=== PATIENT | female | born 1935 | race African-American/Black ===

== ENCOUNTER 2018-11-23 18:23 | Observation (INO) | payer MEDICARE, MEDICAID ==
[2018-11-23] VITALS (9 sets, daily range): BP systolic 113–197; BP diastolic 56–106
[~2018-11-23] VITALS: Ht 167.6 cm; Wt 77.3 kg
[~2018-11-23 18:23] MED LIST: ANUSOL-HC 2.5%30 GM TOPICAL; BAYER CHEWABLE81 MG PO; CATAPRES TTS-10.1 MG TRANSDERM; CATAPRES TTS-20.2 MG TD; COREG 3.1253.125 MG PO; COZAAR100 MG PO; FLORASTOR250 MG PO; HYZAAR 100-25 T1 TAB PO; LEVAQUIN500 MG PO; LISINOPRIL10 MG PO; LOPERAMIDE HCL2 MG PO; MEGACE40 MG PO; NORVASC10 MG PO; PROTONIX40 MG PO; ZOCOR5 MG PO
[2018-11-23] MEDS ORDERED: ELAVIL75 MG PO (18:32)
[2018-11-23 18:54] LABS: BASOPHILS 0.1 % (0-2); EOSINOPHILS 1.5 % (0-7); HEMATOCRIT 44.8 % (36.0-48.0); HEMOGLOBIN 14.5 g/dL (12-16); IMMATURE GRANULOCYTES 0.5 % (0-5); LYMPHOCYTES 26.5 % (15-50); MCH 27.7 pg (26.0-34.0); MCHC 32.4 g/dL (31.0-37.0); MCV 85.7 fL (80.0-100.0); MEAN PLATELET VOLUME 10.2 fL (7.4-10.4); MONOCYTES 7.9 % (2-11); NEUTROPHILS 63.5 % (40-80); PLATELET COUNT 224 10x3/uL (130-400); RBC 5.23 10x6/uL (4.00-5.40); RDW 16.2 % (11.5-14.5); WBC 14.1 10x3/uL (4.8-10.8)
[2018-11-23 19:06] LABS: ALKALINE PHOSPHATASE 96 U/L (46-116); ALT (SGPT) 10 U/L (10-68); BILIRUBIN - TOTAL 0.61 mg/dL (0.2-1.3); CALC OSMOLALITY 286 mosm/kg (275-300); CALCIUM 8.3 mg/dL (8.5-10.1); CARBON DIOXIDE 26.4 mmol/L (21.0-32.0); CHLORIDE - SERUM 105 mmol/L (98-107); CREATININE - SERUM 1.4 mg/dL (0.6-1.3); GLUCOSE 157 mg/dL (74-106); POTASSIUM - SERUM 3.6 mmol/L (3.5-5.1); SODIUM 142 mmol/L (136-145); UREA NITROGEN 15 mg/dL (7-18); eGFR NON AFRICAN AMERICAN 38 mL/min (90-120)
[2018-11-23 19:18] LABS: CKMB 0.4 U/L (0.0-3.6); CREATINE KINASE 67 UL (21-215)
[2018-11-23 20:31] LABS: APPEARANCE CLEAR (CLEAR); BILIRUBIN NEGATIVE (NEGATIVE); COLOR YELLOW (YELLOW); GLUCOSE NEGATIVE (NEGATIVE); KETONE NEGATIVE (NEGATIVE); NITRITE NEGATIVE (NEGATIVE); PROTEIN NEGATIVE (NEGATIVE); SPECIFIC GRAVITY 1.015 (1.005-1.020); UROBILINOGEN NORMAL (NORMAL)
--- NOTE | 2018-11-23 23:42 | NUR ---
RN ASSISTED PT ONTO BEDPAN. PT TOLERATED WELL. PT FAMILY AT BEDSIDE.
--- NOTE | 2018-11-24 00:15 | NUR ---
PT SLEEPING ON BED, PT FAMILY AT BEDSIDE.
--- NOTE | 2018-11-24 00:19 | NUR ---
I have reviewed this patient and I concur with the Shift Assessment completed by the Licensed Practical Nurse today this shift.
--- NOTE | 2018-11-24 00:50 | NUR ---
RECEIVED TO FLOOR FROM ER, ORIENTED TO ROOM, CALL LIGHT IN REACH, BED LOWEST POSITION, WILL CONTINUE POC
[2018-11-24 01:12] VITALS: BP 139/64; Ht 167.6 cm; Wt 77.3 kg
--- NOTE | 2018-11-24 01:21 | NUR ---
ADMISSION ASSESSMENT COMPLETE. PT ORIENTED TO ROOM AND CALL LIGHT. BED ALARM, YELLOW GOWN, YELLOW BRACELET, AND NON SKID SOCKS IN PLACE PER FALL PROTOCAL. SIDE RAILS UP X2 FOR SAFETY. O2 IN USE VIA NC AT 2L.
--- NOTE | 2018-11-24 08:12 | NUR ---
PT DISORIENTED TO TIME. SPEECH GARBLED. IV TO RIGHT AC, PATENT, DRESSING CLEAN DRY AND INTACT. PT REPORTING NO PAIN AT THIS TIME. BED LOW, CALL LIGHT IN REACH. NO OTHER NEEDS AT THIS TIME.
[2018-11-24 08:45] VITALS: BP 116/68
[2018-11-24] MEDS ORDERED: EDARBI40 MG PO (09:46)
[2018-11-24 09:49] LABS: BASOPHILS 0.1 % (0-2); EOSINOPHILS 1.1 % (0-7); HEMATOCRIT 43.7 % (36.0-48.0); HEMOGLOBIN 14.2 g/dL (12-16); IMMATURE GRANULOCYTES 0.4 % (0-5); MCH 27.7 pg (26.0-34.0); MCHC 32.5 g/dL (31.0-37.0); MCV 85.4 fL (80.0-100.0); MONOCYTES 7.1 % (2-11); NEUTROPHILS 79.3 % (40-80); PLATELET COUNT 223 10x3/uL (130-400); RBC 5.12 10x6/uL (4.00-5.40); RDW 16.2 % (11.5-14.5); WBC 10.7 10x3/uL (4.8-10.8)
[2018-11-24 10:04] LABS: ALBUMIN 2.7 g/dL (3.4-5.0); ANION GAP 9.4 mmol/L (8-16); BILIRUBIN - TOTAL 0.59 mg/dL (0.2-1.3); CALCIUM 8.4 mg/dL (8.5-10.1); CARBON DIOXIDE 29.5 mmol/L (21.0-32.0); CREATININE - SERUM 0.9 mg/dL (0.6-1.3); POTASSIUM - SERUM 3.9 mmol/L (3.5-5.1); PROTEIN - SERUM 6.5 g/dL (6.4-8.2)
[2018-11-24 12:00] VITALS: BP 117/70
[2018-11-24 16:30] VITALS: BP 125/62
[2018-11-24 20:31] VITALS: BP 118/54
--- NOTE | 2018-11-25 02:56 | NUR ---
I have reviewed this patient and I concur with the Shift Assessment completed by the Licensed Practical Nurse today this shift.
[2018-11-25 04:59] VITALS: BP 119/80
[2018-11-25 05:24] LABS: HEMATOCRIT 41.6 % (36.0-48.0); HEMOGLOBIN 13.2 g/dL (12-16); LYMPHOCYTES 19.2 % (15-50); MCH 27.6 pg (26.0-34.0); MCHC 31.7 g/dL (31.0-37.0); MCV 86.8 fL (80.0-100.0); MEAN PLATELET VOLUME 10.3 fL (7.4-10.4); NEUTROPHILS 67.5 % (40-80); PLATELET COUNT 208 10x3/uL (130-400); RBC 4.79 10x6/uL (4.00-5.40); RDW 16.7 % (11.5-14.5); WBC 8.9 10x3/uL (4.8-10.8)
[2018-11-25 05:33] LABS: ALBUMIN 2.5 g/dL (3.4-5.0); ANION GAP 8.2 mmol/L (8-16); BILIRUBIN - TOTAL 0.58 mg/dL (0.2-1.3); CALCIUM 8.3 mg/dL (8.5-10.1); CARBON DIOXIDE 30.5 mmol/L (21.0-32.0); CREATININE - SERUM 1.1 mg/dL (0.6-1.3); POTASSIUM - SERUM 3.7 mmol/L (3.5-5.1); PROTEIN - SERUM 6.2 g/dL (6.4-8.2)
[2018-11-25 09:13] VITALS: BP 135/70
--- NOTE | 2018-11-25 10:52 | NUR ---
MORNING ASSESSMENT COMPLETE. SEE ASSESSMENT FLOWSHEET FOR FURTHER DETIALS. PT LYING IN BED AAO X4 TO PERSON, PLACE, TIME, AND SITUATION. DENIES NEEDS AT THIS TIME. CL IN REACH. SIDE RAILS UP X3 FOR PT SAEFTY. BED IN LOWEST POSITION. DAUGHTER AT BEDSIDE.
--- NOTE | 2018-11-25 11:12 | MORECARE ---
CASE MANAGEMENT DISCHARGE SUMMARY PATIENT: TELLY SORENSEN UNIT: [id number] ADM DATE: 11/24/18 AGE: 83 : 37 SEX: F ROOM/BED: D.2230 AUTHOR: PONCHO PADGETT PHYSICIAN: REFERRING PHYSICIAN: MARCIE GALVEZ DO DATE OF SERVICE: 11/25/18 Discharge Plan Patient Name: TELLY SORENSEN Facility: [facility]:[place] : 1935 Planned Disposition: Home with Home Health Anticipated Discharge Date: 11/25/18 Discharge Date: Expected LOS: 1 Initial Reviewer: [email or web address] Initial Review Date: 11/24/2018 Generated: 11/25/18 12:12 pm Patient Name: TELLY SORENSEN Page [phone] at 1112 All edits/amendments must be made on the electronic document DICTATION DATE: 11/25/18 1111 COLOR PRINT INSPECTOR: CHANEL 11/25/18 1111 RPT#: [id number] DC DATE: STATUS: ADM IN [facility] [address] [place] [address] END OF REPORT
--- NOTE | 2018-11-25 11:12 | NUR ---
D/C PT HOME VIA W/C. WENT OVER ALL DISCHARGED INSTRUCTIONS AND PT/DAUGHTER STATES UNDERSTANDING. DENIES FURTHER NEEDS AT THIS TIME. LEFT WITH ALL PERSONAL BELONGINGS.
--- NOTE | 2018-11-25 11:19 | MORECARE ---
CASE MANAGEMENT DISCHARGE SUMMARY PATIENT: TELLY SORENSEN UNIT: [id number] ADM DATE: 11/24/18 AGE: 83 : 37 SEX: F ROOM/BED: D.2230 AUTHOR: PONCHO PADGETT PHYSICIAN: REFERRING PHYSICIAN: MARCIE GALVEZ DO DATE OF SERVICE: 11/25/18 Discharge Plan Patient Name: TELLY SORENSEN Facility: [facility]:[place] : 1935 Planned Disposition: Home with Home Health Anticipated Discharge Date: 11/25/18 Discharge Date: Expected LOS: 1 Initial Reviewer: [email or web address] Initial Review Date: 11/24/2018 Generated: 11/25/18 12:19 pm Comments DCP- Discharge Planning Updated by [email or web address]: Renetta Casanova on 11/25/18 10:[address] PATIENT FOR DISCHARGE TO HOME TODAY. CM SPOKE WITH THE PATIENT WHO GAVE PERMISSION FOR CM TO SPEAK WITH HER DAUGHTER, MS NATALIA VIDAL. CM ADVISED OF DISCHARGE AND ORDER FOR HOME HEALTH, THE DAUGHTER STATES THEY HAVE HAD HOME HEALTH PREVIOUSLY AND WANT [facility]. CM PROVIDED PATIENT CHOICE LIST FOR HOME HEALTH AND PATIENT CHOICE FORM. CM EXPLAINED DISCHARGE IMM. PATIENT STATES SHE WANTS TO GO HOME AND IS READY TO GO. THE DAUGHTER STATES SHE UNDERSTANDS DISCHARGE IMM. PATIENT ASK DTR TO SIGN CHOICE FORM AND DISCHARGE IMM. TC TO [facility] AND SPOKE Ila/ JANIS. CM FAXED CLINICAL, MD ORDERS AND DISCHARGE ORDERS. [facility] WILL ADVISE THE DTR OF VISIT DATE. Coverage Notice Reviewer: [email or web address] - Renetta Casanova Notice Issued Date-Time: 11/25/2018 10:27 Notice Type: IM Discharge Notice Notice Delivered To: Family Member Relationship to Patient: Daughter Speech Language Pathologist Assistant Name: NATALIA VIDAL Delivery Method: HAND - Hand Delivered Lucy Days: Prior Verbal Notification: Recipient Understood Notice: Yes Recipient Signature: Yes Med Rec Note Co-signed by Attending: Coverage Notice Comment: D/C IMM SERVED TO THE PATIENT AND DTR AFTER EXPLANING D/C IMM. Last DP export: 11/25/18 10:12 a Patient Name: TELLY SORENSEN Page [id number] at 1119 All edits/amendments must be made on the electronic document DICTATION DATE: 11/25/181118 TALENT ACQUISITION COORDINATOR: CHANEL 11/25/181118 RPT#: [id number] DC DATE: STATUS: ADM IN [facility] [address] [place] [address] END OF REPORT
--- NOTE | 2018-11-26 15:15 | MORECARE ---
CASE MANAGEMENT DISCHARGE SUMMARY PATIENT: TELLY SORENSEN UNIT: [id number] ADM DATE: 11/24/18 AGE: 83 : 37 SEX: F ROOM/BED: D.2230 AUTHOR: PONCHO PADGETT PHYSICIAN: REFERRING PHYSICIAN: MARCIE GALVEZ DO DATE OF SERVICE: 11/26/18 Discharge Plan Patient Name: TELLY SORENSEN Facility: [facility]:[place] : 1935 Planned Disposition: Home with Home Health Anticipated Discharge Date: 11/25/18 Discharge Date: 11/25/2018 Expected LOS: 1 Initial Reviewer: [email or web address] Initial Review Date: 11/24/2018 Generated: 11/26/18 4:15 pm Comments DCP- Discharge Planning Updated by [email or web address]: Renetta Casanova on 11/25/18 10:[address] PATIENT FOR DISCHARGE TO HOME TODAY. CM SPOKE WITH THE PATIENT WHO GAVE PERMISSION FOR CM TO SPEAK WITH HER DAUGHTER, MS NATALIA VIDAL. CM ADVISED OF DISCHARGE AND ORDER FOR HOME HEALTH, THE DAUGHTER STATES THEY HAVE HAD HOME HEALTH PREVIOUSLY AND WANT [facility]. CM PROVIDED PATIENT CHOICE LIST FOR HOME HEALTH AND PATIENT CHOICE FORM. CM EXPLAINED DISCHARGE IMM. PATIENT STATES SHE WANTS TO GO HOME AND IS READY TO GO. THE DAUGHTER STATES SHE UNDERSTANDS DISCHARGE IMM. PATIENT ASK DTR TO SIGN CHOICE FORM AND DISCHARGE IMM. TC TO [employer] AND SPOKE W/ JANIS. CM FAXED CLINICAL, MD ORDERS AND DISCHARGE ORDERS. [facility] WILL ADVISE THE DTR OF VISIT DATE. Coverage Notice Reviewer: [id number] - Renetta Casanova Notice Issued Date-Time: 11/25/2018 10:27 Notice Type: IM Discharge Notice Notice Delivered To: Family Member Relationship to Patient: Daughter Roof Shingler Name: NATALIA VIDAL Delivery Method: HAND - Hand Delivered Lucy Days: Prior Verbal Notification: Recipient Understood Notice: Yes Recipient Signature: Yes Med Rec Note Co-signed by Attending: Coverage Notice Comment: D/C IMM SERVED TO THE PATIENT AND DTR AFTER EXPLANING D/C IMM. Last DP export: 11/25/18 10:19 a Patient Name: TELLY SORENSEN Page [phone] at 1515 All edits/amendments must be made on the electronic document DICTATION DATE: 11/26/181514 CHEESE CUTTER: CHANEL 11/26/18 151 RPT#: [id number] DC DATE:11/25/18 STATUS: DIS IN [facility] [address] [place] [address] END OF REPORT
== END 2018-11-25 11:38 | disposition home health service (06) ==
LOC: D.ER 18:23 → OBSVTIME 11-24 00:05 → D.MS 11-24 00:05 → D.M3 11-24 04:27 → D.MS 11-24 04:29
PROVIDERS: Family Medicine; ADMIT Family Medicine; ATTEND Family Medicine
DX: I62.9 Nontraumatic intracranial hemorrhage, unspecified (principal); Z86.73 Personal history of transient ischemic attack (TIA), and cerebral infarction without residual deficits; M19.90 Unspecified osteoarthritis, unspecified site; I11.0 Hypertensive heart disease with heart failure; I50.9 Heart failure, unspecified

== ENCOUNTER → 2019-03-12 13:04 | Outpatient (CLI) | payer MEDICARE, MEDICAID ==
[2018-11-24 01:12] VITALS: BMI 27.5
--- NOTE | ~2019-03-12 | EC ---
PATIENT:TELLY SORENSEN DATE OF SERVICE: 03/12/19 SEX: F MEDICAL RECORD: [id number] DATE OF : [birth year] LOCATION:D[facility] AGE OF PATIENT: 83 ADMISSION DATE: 03/12/19 REFERRING PHYSICIAN: INTERPRETING PHYSICIAN: SHANIQUA ORTIZ MD ECHOCARDIOGRAM REPORT ECHO CHARGES 4 ECHO COMPLETE Date: 03/12/19 CLINICAL DIAGNOSIS: CARDIOMYOPATHY/CHF H/O HTN ECHOCARDIOGRAPHIC MEASUREMENTS (adult normal given) AC root (d.<3.7cm) 2.8 cm LV Septum d (<1.2 cm> 1.2 cm Valve Excursion 1.3 cm LV Septum (systole) 1.6 cm Left Atria (s.<4.0cm> 3.4 cm LVPW d(<1.2cm) 1.2 cm RV (d.<2.3cm) 2.1 cm LVPW (sytole) 1.5 cm LV diastole(<5.6CM) 5.6 cm MV E-F(>70mm/sec) cm LV systole 4.0 cm LVOT Diameter 1.5 cm MV exc.(>10mm) cm Est.ejection fraction (50-75%) % DOPPLER: LVIT cm/sec A 45.0 cm/sec E 120 cm/sec LA cm/sec RVSP 41.0 mmHg LVOT 127 cm/sec AOP1/2T m/s Asc. Ao 192 cm/sec RVOT 72.0 cm/sec RA cm/sec PA 120 cm/sec AV Gradient Peak 15.0 mmHg AV Mean 5.3 mmHg AV Area 1.1 cm MV Gradient Peak 5.9 mmHg MV Mean 2.1 mmHg MV Area cm COMMENTS: OP - HC Supervisory Training Specialist: Bladimir CHANDRAOE Telegraph Office Manager: 1 Dr. Ortiz TAPE# PACS Pericardial Effusion N DATE OF SERVICE: 03/12/2019 FINDINGS: 1. Left ventricular chamber size is mildly dilated. Left ventricular systolic function is markedly reduced. Overall ejection fraction is 20%. 2. Left atrium is within normal limits at 3.4 cm. Right atrium and right ventricular chamber sizes are upper limits of normal. 3. Valvular structures have normal structure and motion. 4. Doppler interrogation reveals mild tricuspid regurgitation. No other valvular insufficiency or stenosis. Pulmonary systolic pressure is estimated at ECHOCARDIOGRAM REPORT [id number] TELLY SORENSEN 41 mmHg. 5. No evidence of pericardial effusion or left ventricular thrombus. TRANSINT:[id number] Voice Confirmation ID: [id number] DOCUMENT ID: [id number] SHANIQUA ORTIZ MD CC: [id number] DICTATION DATE: 03/12/19 145 ANIMATION CAMERA OPERATOR: 03/12/19 1542 [facility] [address] [place] [id number]
[~2019-03-12 13:04] MED LIST changes: +EDARBI40 MG PO; +ELAVIL75 MG PO
== END | disposition home or self-care (01) ==
LOC: D.HCCARDIO 13:04
PROVIDERS: ATTEND Internal Medicine Interventional Cardiology
DX: I42.9 Cardiomyopathy, unspecified (principal); I50.9 Heart failure, unspecified; I11.0 Hypertensive heart disease with heart failure

== ENCOUNTER 2019-07-16 11:45 | Observation (INO) | payer MEDICARE, MEDICAID ==
[~2019-07-16] VITALS: Ht 167.6 cm; Wt 85.0 kg
[2019-07-16 12:04] LABS: BASOPHILS 0.1 % (0-2); EOSINOPHILS 2.8 % (0-7); HEMATOCRIT 43.5 % (36.0-48.0); HEMOGLOBIN 13.8 g/dL (12-16); IMMATURE GRANULOCYTES 0.3 % (0-5); LYMPHOCYTES 23.4 % (15-50); MCH 27.9 pg (26.0-34.0); MCHC 31.7 g/dL (31.0-37.0); MCV 87.9 fL (80.0-100.0); MEAN PLATELET VOLUME 10.1 fL (7.4-10.4); MONOCYTES 6.5 % (2-11); NEUTROPHILS 66.9 % (40-80); PLATELET COUNT 236 10x3/uL (130-400); RBC 4.95 10x6/uL (4.00-5.40); RDW 15.5 % (11.5-14.5); WBC 9.4 10x3/uL (4.8-10.8)
[2019-07-16 12:19] LABS: APTT 24.9 SECONDS (22.8-39.4); INR 1.03 (0.85-1.17)
[2019-07-16 12:28] LABS: CALC OSMOLALITY 275 mosm/kg (275-300); CALCIUM 8.5 mg/dL (8.5-10.1); CARBON DIOXIDE 28.2 mmol/L (21.0-32.0); CHLORIDE - SERUM 103 mmol/L (98-107); CREATININE - SERUM 1.7 mg/dL (0.6-1.3); GLUCOSE 111 mg/dL (74-106); POTASSIUM - SERUM 4.4 mmol/L (3.5-5.1); SODIUM 138 mmol/L (136-145); UREA NITROGEN 9 mg/dL (7-18); eGFR NON AFRICAN AMERICAN 31 mL/min (90-120)
[2019-07-16 12:34] VITALS: BP 101/36
[2019-07-16] MEDS ORDERED: NORVASC10 MG (12:36)
[2019-07-16] MEDS ORDERED: SMZ-TMP DS 800-1 TAB PO (12:36)
[2019-07-16] MEDS ORDERED: COREG12.5 MG PO (12:36)
[2019-07-16] MEDS ORDERED: ZOCOR10 MG PO (12:36)
[2019-07-16 12:43] LABS: ALBUMIN 2.9 g/dL (3.4-5.0); ALKALINE PHOSPHATASE 110 U/L (46-116); ALT (SGPT) 14 U/L (10-68); BILIRUBIN - TOTAL 0.41 mg/dL (0.2-1.3); CKMB 0.5 U/L (0.0-3.6); CREATINE KINASE 40 UL (21-215); MAGNESIUM - SERUM 2.4 mg/dL (1.8-2.4); PROTEIN - SERUM 7.2 g/dL (6.4-8.2); TROPONIN-I < 0.017 ng/mL (0.000-0.060)
[2019-07-16 13:45] VITALS: BP 149/59
[2019-07-16 14:58] VITALS: BP 146/58
--- NOTE | 2019-07-16 15:03 | NUR ---
REPORT TO [facility]
--- NOTE | 2019-07-16 15:15 | NUR ---
NS 1000ML INITIATED @ 75 ML/HR JUST PRIOR TO TX TO ROOM
--- NOTE | 2019-07-16 15:17 | NUR ---
TRANSFER FROM ER BY STRETCHER. OREINTED TO ROOM. CALL LIGHT IN REACH. WILL CONT. PLAN OF CARE.
--- NOTE | 2019-07-16 15:20 | NUR ---
TRANSPORTED TO ROOM #2120, CONDITION STABLE
--- NOTE | 2019-07-16 15:31 | NUR ---
RECEIVED PT FROM ER. PT IS AAO AND BEDFAST. FAMILY AT BEDSIDE. PT IS LYING SEMI FOWLERS. CALL LIGHT W/I REACH. RR EVEN AND UNLABORED ON RA. NS INFUSING @75ML/HR VIA L.AC PIV. NO S/S OF DISTRESS NOTED. QUICKSTART, MED REQ, AND HISTORY COMPLETE. PT DENIES ANY NEEDS AT THIS TIME. WILL CTM.
[2019-07-16 15:56] VITALS: BP 135/54; Ht 167.6 cm; Wt 85.0 kg
[2019-07-16 16:10] VITALS: BP 135/54
--- NOTE | 2019-07-16 19:27 | NUR ---
RECEIVED BEDSIDE REPORT. PATIENT IS ALERT AND ORIENTED, RESTING COMFORTABLY IN BED. RESPIRATIONS ARE EVEN AND UNLABORED. NO S/S OF DISTRESS. NO C/O PAIN. CALL LIGHT WITHIN REACH. NEEDS MET. WILL CPOC.
[2019-07-16 20:00] VITALS: BP 129/52
--- NOTE | 2019-07-16 21:05 | NUR ---
EXPLAINED TO PATIENT THAT I NEEDED A URINE SAMPLE. PATIENT SAID SHE NEED TO GO. PATIENT STATED, SHE COULD NOT WALK. I PLACED PATIENT ON A BEDPAN. DAUGHTER CAME TO NURSES STATION UPSET THAT I PUT THE PATIENT ON A BEDPAN. DAUGHTER STATED THAT THE PATIENT COULD WALK. DAUGHTER THREATENED THIS NURSE THAT IF SHE EVER FOUND HER MOTHER WET I WOULD REGRET IT AND SHE WOULD PROMISE ME THAT. SMELTER CHARGER NOTIFIED.
[2019-07-16 22:50] LABS: UDS - AMPHET NEGATIVE QUAL (NEGATIVE); UDS - BARB NEGATIVE QUAL (NEGATIVE); UDS - BENZO NEGATIVE QUAL (NEGATIVE); UDS - COCAINE NEGATIVE QUAL (NEGATIVE); UDS - OPIATE NEGATIVE QUAL (NEGATIVE); UDS - PCP NEGATIVE QUAL (NEGATIVE); UDS - THC POSITIVE QUAL (NEGATIVE)
--- NOTE | 2019-07-16 22:57 | NUR ---
HOURLY ROUNDING COMPLETE. PATIENT RESTING COMFORTABLY IN BED. RESPIRATIONS ARE EVEN AND UNLABORED. NO S/S OF DISTRESS. NO C/O PAIN. CALL LIGHT WITHIN REACH. PATIENT DENIES NEEDS. WILL CPOC
--- NOTE | 2019-07-16 23:02 | NUR ---
EQUIPMENT CLEANER AND TESTER NOTIFIED AGAIN OF DAUGHTER REQUEST TO SPEAK WITH HER.
[2019-07-17] VITALS (7 sets, daily range): BP systolic 136–161; BP diastolic 49–84
--- NOTE | 2019-07-17 02:26 | NUR ---
PATIENT APPEARS TO BE SLEEPING. RESPIRATIONS ARE EVEN AND UNLABORED. NO S/S OF DISTRESS. NO C/O PAIN. CALL LIGHT WITHIN REACH. WILL PCOC.
[2019-07-17 05:51] LABS: BASOPHILS 0.1 % (0-2); EOSINOPHILS 1.8 % (0-7); HEMATOCRIT 41.4 % (36.0-48.0); HEMOGLOBIN 13.1 g/dL (12-16); IMMATURE GRANULOCYTES 0.2 % (0-5); MCH 27.6 pg (26.0-34.0); MCHC 31.6 g/dL (31.0-37.0); MCV 87.3 fL (80.0-100.0); MEAN PLATELET VOLUME 9.9 fL (7.4-10.4); MONOCYTES 7.7 % (2-11); NEUTROPHILS 74.2 % (40-80); PLATELET COUNT 238 10x3/uL (130-400); RBC 4.74 10x6/uL (4.00-5.40); RDW 15.4 % (11.5-14.5); WBC 9.4 10x3/uL (4.8-10.8)
[2019-07-17 06:33] LABS: ALBUMIN 2.7 g/dL (3.4-5.0); ANION GAP 11.5 mmol/L (8-16); BILIRUBIN - TOTAL 0.39 mg/dL (0.2-1.3); CALCIUM 7.8 mg/dL (8.5-10.1); CARBON DIOXIDE 24.8 mmol/L (21.0-32.0); CREATININE - SERUM 1.4 mg/dL (0.6-1.3); MAGNESIUM - SERUM 2.3 mg/dL (1.8-2.4); POTASSIUM - SERUM 4.3 mmol/L (3.5-5.1); PROTEIN - SERUM 6.3 g/dL (6.4-8.2)
--- NOTE | 2019-07-17 10:09 | NUR ---
TELEMETRY SB. UP AMBULATING WITH PT ASSIST. WILL CONT. PLAN OF CARE.
--- NOTE | 2019-07-17 10:40 | CN ---
PATIENT NAME:TELLY HENRIQUEZ MEDICAL RECORD: [id number] : [birth year] LOCATION:D. D.2120 ADMIT DATE: 07/16/19 ACCOUNT: [id number] CONSULTING PHYSICIAN: SHANIQUA GARCÍA MD REFERRING PHYSICIAN: NELSON FLAHERTY MD DATE OF CONSULTATION: 07/16/2019 DIAGNOSES: 1. Syncope. 2. Bradycardia. 3. Hypertension. 4. Hyperlipidemia. 5. Cardiomyopathy. HISTORY OF PRESENT ILLNESS: Mrs. Henriquez is known to us with a cardiomyopathy, ejection fraction in the 20% range. She has not had any chest pain or chest discomfort, shortness of breath, no heart failure symptomatology. Today while ambulating to the bathroom, her daughter witnessed her having an episode of syncope. She has been bradycardic with heart rates in the 40s; however, here in the ER, blood pressure has been fine. She is asymptomatic with this. She is on carvedilol. She was told recently her heart rate was low and to decrease the carvedilol dose, which they did. PHYSICAL EXAMINATION: PHYSICAL EXAMINATION: CONSTITUTIONAL/GENERAL APPEARANCE: Well nourished, well developed, appears stated age. EYES: Lids and conjunctivae noninjected. No discharge. No pallor. ENT: Lips within normal limit. No cyanosis. No pallor. NECK: Carotid arteries, bilateral normal upstroke. No bruits. No thrills. No jugular venous pressure or distention. CERVICAL LYMPH NODES: Nontender. Nonenlarged. THYROID: Not enlarged. No nodules. CARDIOVASCULAR: Precordial exam, nondisplaced. No heaves or pericardial thrills. Rate and rhythm, regular. Heart sounds, normal S1, normal S2. No S3, no gallop, no rub. Systolic murmur, not heard. Diastolic murmur, not heard. RESPIRATORY: Respiratory effort, unlabored. Normal curvature. No thoracic deformity. No chest wall tenderness. Percussion, resonant. Auscultation, clear. No wheezes, no rales, no rhonchi. ABDOMEN: Soft, nondistended, nontender. No abdominal pain, no vomiting and normal appetite. MUSCULOSKELETAL: No joint tenderness, normal gait, normal tone. SKIN: Warm and dry. OVERALL IMPRESSION: Bradycardia, difficult to say if this is the etiology of the syncope, would discontinue the carvedilol. At this time, no other cardiac workup or treatment is necessary. We will see her back as previously scheduled in our clinic. TRANSINT:[id number] Voice Confirmation ID: [id number] DOCUMENT ID: [id number] CONSULT REPORT [id number] TELLY HENRIQUEZ, SHANIQUA SAPP at 1040 CC: [id number] DICTATION DATE: 07/16/19 1254 RAKE OPERATOR: 07/16/19 2153 ADM IN [place] [facility] [id number] [place] [address]
--- NOTE | 2019-07-17 12:06 | NUR ---
ORTHOSTATIC B/P: LYING 161/74 66, SITTING 161/84 74, STANDING 136/63 82.
--- NOTE | 2019-07-17 16:33 | NUR ---
IV AND TELEMETRY DCD. DC PLANS GIVEN TO FAMILY MEMBER. UNDERSTANDING VOICED. ESCORTED TO CAR BY W/C.
== END 2019-07-17 16:34 | disposition home or self-care (01) ==
LOC: D.ER 11:45 → D.M2 14:04 → OBSVTIME 14:38 → D.M2 07-17 16:34
PROVIDERS: Family Medicine; ADMIT Emergency Medicine; ATTEND Emergency Medicine
DX: R55 Syncope and collapse (principal); I11.0 Hypertensive heart disease with heart failure; I50.9 Heart failure, unspecified; M19.90 Unspecified osteoarthritis, unspecified site; G89.29 Other chronic pain; R00.1 Bradycardia, unspecified; I42.9 Cardiomyopathy, unspecified

== ENCOUNTER 2019-08-25 20:39 | Inpatient (IN) | payer MEDICARE, MEDICAID ==
[~2019-08-25] VITALS: Ht 167.6 cm; Wt 72.6 kg
[~2019-08-25 20:39] MED LIST changes: +COREG12.5 MG PO; +NORVASC10 MG; +SMZ-TMP DS 800-1 TAB PO; +ZOCOR10 MG PO
--- NOTE | 2019-08-25 21:07 | NUR ---
IN AND OUT CATH. URINE SENT TO LAB
[2019-08-25 21:32] LABS: BASOPHILS 0.1 % (0-2); EOSINOPHILS 1.2 % (0-7); HEMATOCRIT 45.8 % (36.0-48.0); HEMOGLOBIN 14.5 g/dL (12-16); IMMATURE GRANULOCYTES 0.9 % (0-5); MCH 27.8 pg (26.0-34.0); MCHC 31.7 g/dL (31.0-37.0); MCV 87.7 fL (80.0-100.0); MEAN PLATELET VOLUME 10.9 fL (7.4-10.4); MONOCYTES 8.8 % (2-11); PLATELET COUNT 215 10x3/uL (130-400); RBC 5.22 10x6/uL (4.00-5.40); WBC 14.5 10x3/uL (4.8-10.8)
[2019-08-25] MEDS ORDERED: FLAGYL500 MG PO (21:39)
[2019-08-25] MEDS ORDERED: DONEPEZIL HCL10 MG PO (21:40)
[2019-08-25 21:42] LABS: CALC OSMOLALITY 284 mosm/kg (275-300); CALCIUM 8.5 mg/dL (8.5-10.1); CARBON DIOXIDE 30.3 mmol/L (21.0-32.0); CHLORIDE - SERUM 106 mmol/L (98-107); CREATININE - SERUM 1.2 mg/dL (0.6-1.3); GLUCOSE 119 mg/dL (74-106); POTASSIUM - SERUM 3.8 mmol/L (3.5-5.1); SODIUM 143 mmol/L (136-145); UREA NITROGEN 11 mg/dL (7-18); eGFR NON AFRICAN AMERICAN 46 mL/min (90-120)
[2019-08-25 21:47] LABS: APPEARANCE CLEAR (CLEAR); BILIRUBIN NEGATIVE (NEGATIVE); COLOR DK YELLOW (YELLOW); GLUCOSE NEGATIVE (NEGATIVE); KETONE NEGATIVE (NEGATIVE); NITRITE NEGATIVE (NEGATIVE); PROTEIN TRACE mg/dL (NEGATIVE); SPECIFIC GRAVITY 1.015 (1.005-1.020); UROBILINOGEN NORMAL (NORMAL)
[2019-08-25 21:48] LABS: WHITE CELLS - URINE 0-5 /hpf (NEGATIVE)
[2019-08-25 21:49] LABS: BACTERIA MODERATE /hpf (NEGATIVE); EPITHELIAL CELLS 0-5 /hpf (0-5); RED CELLS - URINE OCC /hpf (0-5)
[2019-08-25 21:59] LABS: ALBUMIN 2.4 g/dL (3.4-5.0); ALKALINE PHOSPHATASE 73 U/L (46-116); ALT (SGPT) 13 U/L (10-68); BILIRUBIN - TOTAL 0.47 mg/dL (0.2-1.3); CKMB 0.8 U/L (0.0-3.6); CREATINE KINASE 131 UL (21-215); PRO BNP 2837 pg/mL (0-450); PROTEIN - SERUM 6.2 g/dL (6.4-8.2); THYROID STIMULATING HORMONE 1.35 uIU/mL (0.36-3.74); TROPONIN-I 0.038 ng/mL (0.000-0.060)
[2019-08-25 22:00] VITALS: BP 140/69
[2019-08-26] VITALS (7 sets, daily range): BP systolic 110–143; BP diastolic 43–78; Ht 167.6 cm; Wt 72.6 kg
--- NOTE | 2019-08-26 00:38 | NUR ---
KARLEE COMPLETION AND DC'D 003
--- NOTE | 2019-08-26 01:30 | NUR ---
RECIEVED REPORT FROM KELLI STANLEY. PT ARRIVED BY BED. PT APPEARS LETHARGIC. AROUSE TO VOICE. MINOR BRUISE NOTED ON LOWER BACK. PIV R.AC 20G INTACT, NS @50. NEUROCHECKS COMPLETED DAUGHTER AT BEDSIDE. FALL PRECAUTION IN PLACE, BED ALARM ON. PT IS A POOR HX, PT HX OBTAIN FROM DAUGHTER. HELP CLEAN PT UP AND PROVIDED PT WITH FRESH LINEN AND GOWN. PT PLACED ON NPO AFTER MIDNIGHT PER CARDIOLOGY CONSULT. PT DENIES ANY FURTHER NEEDS AT THIS TIME. WILL CTM. CL WITHIN REACH.
[2019-08-26 06:13] LABS: BASOPHILS 0.1 % (0-2); EOSINOPHILS 0.4 % (0-7); HEMATOCRIT 44.8 % (36.0-48.0); HEMOGLOBIN 14.2 g/dL (12-16); IMMATURE GRANULOCYTES 0.6 % (0-5); LYMPHOCYTES 10.4 % (15-50); MCHC 31.7 g/dL (31.0-37.0); MCV 88.4 fL (80.0-100.0); MEAN PLATELET VOLUME 10.6 fL (7.4-10.4); MONOCYTES 6.4 % (2-11); NEUTROPHILS 82.1 % (40-80); PLATELET COUNT 253 10x3/uL (130-400); RBC 5.07 10x6/uL (4.00-5.40); RDW 17.4 % (11.5-14.5); WBC 12.8 10x3/uL (4.8-10.8)
[2019-08-26 06:43] LABS: APTT 28.3 SECONDS (22.8-39.4); INR 1.11 (0.85-1.17); PROTIME 14.2 SECONDS (11.6-15.0)
[2019-08-26 07:12] LABS: CALC OSMOLALITY 286 mosm/kg (275-300); CALCIUM 8.2 mg/dL (8.5-10.1); CARBON DIOXIDE 30.6 mmol/L (21.0-32.0); CHLORIDE - SERUM 108 mmol/L (98-107); CREATINE KINASE 102 UL (21-215); CREATININE - SERUM 0.9 mg/dL (0.6-1.3); GLUCOSE 76 mg/dL (74-106); PHOSPHOROUS 3.4 mg/dL (2.5-4.9); POTASSIUM - SERUM 4.3 mmol/L (3.5-5.1); SODIUM 145 mmol/L (136-145); TROPONIN-I 0.051 ng/mL (0.000-0.060); UREA NITROGEN 10 mg/dL (7-18); eGFR NON AFRICAN AMERICAN 64 mL/min (90-120)
--- NOTE | 2019-08-26 07:20 | NUR ---
RECIEVE REPORT. ALERT AND ORIENTED X4. RESTING IN BED. FAMILY AT BEDSIDE. IV INFUSING ORDERED. SINUS RYTHM 64 ON TELEMETRY. CONTINUE PLAN OF CARE AND SAFETY PRECAUTIONS.
[2019-08-26 07:33] LABS: CKMB 0.8 U/L (0.0-3.6)
[2019-08-26 13:41] LABS: CKMB 0.8 U/L (0.0-3.6); CREATINE KINASE 69 UL (21-215); TROPONIN-I 0.041 ng/mL (0.000-0.060)
--- NOTE | 2019-08-26 19:45 | NUR ---
GASTROENTEROLOGY TECHNICIAN AT BED SIDE, PT INCONTINENT OF BOWEL AND URINE.
--- NOTE | 2019-08-26 20:00 | NUR ---
CALLED TO PTS ROOM TO SPEAK WITH PTS DAUGHTER. DAUGHTER UPSET AND STATED THAT HER MOTHERS CL WAS ON FOR 15 MINUTES AND THAT PT HAD BEEN DIRTY. DAUGHTER EXPRESSED THAT SHE WAS NOT MAD AT THE NURSE OR THE FUR G[facility]ER BECAUSE SHE KNOWS THAT THE STAFF ARE BUSY BUT HER MOTHER IS HER PRIORITY AND THAT SHE WILL "CATCH A CHARGE" WHEN IT COMES TO HER MOTHER. INFORMED PT AND PTS DAUGHTER THAT I WILL BE SURE TO WATCH FOR HER CL AND ANSWER IT PROMPTLY, INSTRUCTED FUR GLAZER TO SIT AT BACK NURSES STATION TO HELP WATCH FOR PTS LIGHT.
--- NOTE | 2019-08-26 21:18 | NUR ---
HS MEDS GIVEN WITH FRESH ICE WATER. PT DENIES PAIN OR NEEDS, BED LOW, CL IN REACH, DAUGHTER AT BED SIDE.
--- NOTE | 2019-08-26 21:55 | NUR ---
PT AND DAUGHTER C/O SOMETHING IN THE ROOM IS MAKING THEIR EYES BURN AND ITCH, AND CHOCKING THEM UP. PT MOVED TO ROOM 2102, NOTIFIED TALENT REP OF ROOM CHANGE AND NOTIFIED HOUSE KEEPING THAT ROOM 6 MIGHT NEED TO BE INSPECTED DUE TO IRRITANTS.
--- NOTE | 2019-08-26 22:02 | NUR ---
PTS DAUGHTER STATED THAT SHE CAN TELL A DIFFERENCE IN THE NEW ROOM, AND IS GLAD TO HAVE BEEN MOVED. REPORT GIVEN TO LUIS ENRIQUE MATSON, SHE IS TAKING OVER CARE OF PT DUE TO MOVING ROOMS.
[2019-08-27] VITALS: BP 133/73
[2019-08-27 04:00] VITALS: BP 149/82
[2019-08-27 06:10] LABS: BASOPHILS 0.2 % (0-2); EOSINOPHILS 1.2 % (0-7); HEMATOCRIT 40.6 % (36.0-48.0); HEMOGLOBIN 12.8 g/dL (12-16); IMMATURE GRANULOCYTES 0.4 % (0-5); MCH 27.6 pg (26.0-34.0); MCHC 31.5 g/dL (31.0-37.0); MCV 87.7 fL (80.0-100.0); MEAN PLATELET VOLUME 10.8 fL (7.4-10.4); MONOCYTES 9.1 % (2-11); NEUTROPHILS 77.1 % (40-80); PLATELET COUNT 238 10x3/uL (130-400); RBC 4.63 10x6/uL (4.00-5.40); RDW 17.4 % (11.5-14.5); WBC 11.2 10x3/uL (4.8-10.8)
[2019-08-27 06:30] LABS: ANION GAP 7.4 mmol/L (8-16); CALCIUM 7.7 mg/dL (8.5-10.1); CARBON DIOXIDE 30.2 mmol/L (21.0-32.0); CREATININE - SERUM 0.9 mg/dL (0.6-1.3)
[2019-08-27 06:31] LABS: PHOSPHOROUS 2.4 mg/dL (2.5-4.9); POTASSIUM - SERUM 3.6 mmol/L (3.5-5.1)
--- NOTE | 2019-08-27 07:54 | NUR ---
PT RESTING IN BED COMFORTABLY RR EVEN AND UNLABORED. NO S/S OF DISTRESS AT THIS TIME. BED LOW CALL LIGHT WITHIN REACH BED ALARM IN PLACE. WILL CONTIN UE TO MONITOR.
[2019-08-27 10:22] VITALS: BP 158/72
--- NOTE | 2019-08-27 11:44 | NUR ---
I have reviewed this patient and I concur with the Shift Assessment completed by the Licensed Practical Nurse today this shift.
--- NOTE | 2019-08-27 11:46 | NUR ---
REHAB PRESCREENING Rehab referral received and chart reviewed. This patient has [employer] as her insurance provider which requires prior authorization. PT and OT have been ordered. Rehab will continue to follow for therapies in order to initiate pre-auth. Thank you for this referral! Lita De La Rosa, LICENSED MARRIAGE AND FAMILY THERAPIST Rehab PD
[2019-08-27 13:53] VITALS: BP 120/57
--- NOTE | 2019-08-27 14:27 | MORECARE ---
CASE MANAGEMENT DISCHARGE SUMMARY PATIENT: TELLY SORENSEN UNIT: [id number] ADM DATE: 08/25/19 AGE: 83 : 37 SEX: F ROOM/BED: D.2103 AUTHOR: LORIN,DOC PHYSICIAN: REFERRING PHYSICIAN: BAM CLAIRE DO DATE OF SERVICE: 08/27/19 Discharge Plan Patient Name: TELLY SORENSEN [facility] [facility] 1935 Planned Disposition: Inpatient Rehab Anticipated Discharge Date: Discharge Date: Expected LOS: Initial Reviewer: [email or web address] Initial Review Date: 08/27/2019 Generated: 08/27/19 3:26 pm Comments DCP- Discharge Planning Updated by [email or web address]: Kee Guadarrama on 08/27/19 1:[address] Patient Name: TELLY SORENSEN Admission Status: ER Accout number: [id number] Admission Date: 08-25-2019 : 1935 Admission Diagnosis: Attending: BAM CLAIRE Current LOS: 2 Anticipated DC Date: Planned Disposition: Inpatient Rehab Primary Insurance: [employer]ARE ADV PLANNED EXTERNAL PROVIDER: [facility] Discharge Planning Comments: CM RECEIVED INPATIENT REHAB PRESCREENING ORDER. CM MET WITH PT IN ROOM TO DISCUSS DISCHARGE PLANNING AND NEEDS. PT REPORTS LIVING AT HOME DEPENDENTLY WITH HER ADULT DAUGHTER WHO ASSISTS WITH TOILETING. PT HAS NO MEDICAL EQUIPMENT AND NO OUTSIDE SERVICES ASSISTING IN THE HOME. CM DISCUSSED AVAILABILITY OF HOME HEALTH, REHAB SERVICES AND MEDICAL EQUIPMENT. PT WANTS REHAB AT [place] AND WILL NOT CONSIDER [facility] FOR REHAB. CHOICE SIGNED. CM WAITING THERAPY EVALUATIONS WELL INPATIENT REHAB PRESCREENING RESULTS FROM [facility]. Chief Radiology: Kee Guadarrama DCPIA - Discharge Planning Initial Assessment Updated by [email or web address]: Kee Guadarrama on 08/27/19 2:22 pm * Is the patient Alert and Oriented? Yes * How many steps to enter\exit or inside your home? NONE * PCP DR. FLAHERTY * Pharmacy [facility] * Preadmission Environment Home with Family * ADLs Partial Dependent * Partial ADLs (Assistance needed) Toileting * Equipment None * Other Equipment NO MEDICAL EQUIPMENT PROVIDER PREFERENCE * List name and contact numbers for known caregivers / representatives who currently or will assist patient after discharge: NATALIA MARCY, DTR, * Verbal permission to speak to the caregivers and representatives has been obtained from the patient. Yes * Community resources currently utilized Home Health * Please name any agencies selected above. [facility] * Additional services required to return to the preadmission environment? Yes * Can the patient safely return to the preadmission environment? Yes * Has this patient been hospitalized within the prior 30 days at any hospital? No Coverage Notice Reviewer: [id number] Jelani Guadarrama Notice Issued Date-Time: 08/27/2019 14:10 Notice Type: Patient Choice Letter Notice Delivered To: Patient Relationship to Patient: Support Services Rep Name: Delivery Method: HAND - Hand Delivered Lucy Days: Prior Verbal Notification: Recipient Understood Notice: Yes Recipient Signature: Yes Med Rec Note Co-signed by Attending: Coverage Notice Comment: [facility] Patient Name: TELLY SORENSEN Page [phone] at 1427 All edits/amendments must be made on the electronic document DICTATION DATE: 08/27/19 1426 TAR HEATER: CHANEL 08/27/19 1426 RPT#: [id number] DC DATE: STATUS: ADM IN [facility] [address] [place] [address] END OF REPORT
--- NOTE | 2019-08-27 15:41 | NUR ---
PT HAD LARGE BOWEL MOVEMENT. LINEN CHANGED PT CLEANED UP. RR EVEN AND UNLABORED. NO S/S OF DISTRESS AT THIS TIME. BED LOW CALL LIGHT WITHIN REACH. BED ALARM IN PLACE. WILL CONTINUE TO MONITOR.
[2019-08-27 16:57] VITALS: BP 125/57
--- NOTE | 2019-08-27 19:45 | NUR ---
EVENING ROUNDS COMPLETE, PT LAYING IN BED, FAMILY AT BEDSIDE. NO SIGNS OF DISTRESS. PT DENIES ANY PAIN OR NEEDS AT THIS TIME. CL IN REACH, BED IN LOWEST POSITION.
[2019-08-27 20:00] VITALS: BP 119/62
[2019-08-28] VITALS: BP 138/64
[2019-08-28 04:00] VITALS: BP 134/54
[2019-08-28 06:01] LABS: BASOPHILS 0.2 % (0-2); EOSINOPHILS 1.8 % (0-7); HEMOGLOBIN 13.3 g/dL (12-16); IMMATURE GRANULOCYTES 0.4 % (0-5); LYMPHOCYTES 15.7 % (15-50); MCH 27.6 pg (26.0-34.0); MCHC 31.7 g/dL (31.0-37.0); MCV 87.1 fL (80.0-100.0); MEAN PLATELET VOLUME 11.3 fL (7.4-10.4); MONOCYTES 9.1 % (2-11); NEUTROPHILS 72.8 % (40-80); PLATELET COUNT 239 10x3/uL (130-400); RBC 4.82 10x6/uL (4.00-5.40); RDW 17.3 % (11.5-14.5); WBC 10.1 10x3/uL (4.8-10.8)
[2019-08-28 06:17] LABS: ANION GAP 6.9 mmol/L (8-16); CALCIUM 8.2 mg/dL (8.5-10.1); CARBON DIOXIDE 32.6 mmol/L (21.0-32.0); CREATININE - SERUM 0.9 mg/dL (0.6-1.3); PHOSPHOROUS 2.3 mg/dL (2.5-4.9); POTASSIUM - SERUM 3.5 mmol/L (3.5-5.1)
[2019-08-28 08:48] VITALS: BP 142/73
--- NOTE | 2019-08-28 11:21 | NUR ---
PT UP WITH THERAPY WALKIN HALLS. PT A/O VSS. FAMILY AT BEDSIDE. PT DENIES ANY PAIN OR NEEDS AT THIS TIME. WILL CONTINUE TO MONITOR.
--- NOTE | 2019-08-28 11:49 | NUR ---
CALLED EILEEN POLANCO WITH CARDIOLOGY CONCERNING PT PVC'S.
--- NOTE | 2019-08-28 13:01 | NUR ---
Nutrition Follow-up: Appetite remains poor. Ate ~25% this AM. Daughter reports that Ensure gives pt diarrhea but that pt will continue to drink them; drank 3 yesterday. Diet: Cardiac, Ensure TID PO intake: 26% avg x 7 meals Wt: 160# (08/26) Labs noted: Na 149, Ca 8.2, PO4 2.3 Meds noted: NS @ 50 -Rec appetite stimulant. -Need new wt; noted daily wts ordered. -RD following.
--- NOTE | 2019-08-28 13:29 | NUR ---
Rehab Note- Clinicals have been faxed to [facility] on behalf of [facility] for clinical review for possible inpatient acute rehab stay. Will continue to await determination. Will continue to follow at this time. Thank you for this referral! Jessica Torres RN Clinical Liaison, [facility] Rehab
[2019-08-28 13:45] VITALS: BP 123/58
--- NOTE | 2019-08-28 15:23 | NUR ---
I have reviewed this patient and I concur with the Shift Assessment completed by the Licensed Practical Nurse today this shift.
--- NOTE | 2019-08-28 17:29 | NUR ---
OT NOTE: PT COMPETED BED MOB WITH MIN A. PT COMPLETED SIT TO STAND WITH MIN A. PT COMPLETED ADL MOB WITH RW REQUIRED CGA/MIN A, PT COMPLETED BUE AROM AXS IN CHAIR. [phone] THANK YOU,VERONICA BRINK
[2019-08-28 18:27] VITALS: BP 112/57
--- NOTE | 2019-08-28 19:23 | NUR ---
EVENING ROUNDS COMPLETE. PT LAYING IN BED. NO SIGNS OF DISTRESS. FAMILY AT BEDSIDE. PT DENIES ANY PAIN OR NEEDS AT THIS TIME. CL IN REACH, BED IN LOWEST POSITION.
[2019-08-28 20:00] VITALS: BP 128/57
[2019-08-29 00:30] VITALS: BP 106/48
[2019-08-29 04:23] LABS: BASOPHILS 0.2 % (0-2); EOSINOPHILS 1.5 % (0-7); HEMATOCRIT 40.9 % (36.0-48.0); HEMOGLOBIN 13.1 g/dL (12-16); IMMATURE GRANULOCYTES 0.3 % (0-5); LYMPHOCYTES 9.9 % (15-50); MCH 27.8 pg (26.0-34.0); MCV 86.7 fL (80.0-100.0); MEAN PLATELET VOLUME 10.4 fL (7.4-10.4); MONOCYTES 10.2 % (2-11); NEUTROPHILS 77.9 % (40-80); PLATELET COUNT 249 10x3/uL (130-400); RBC 4.72 10x6/uL (4.00-5.40); RDW 17.1 % (11.5-14.5); WBC 12.3 10x3/uL (4.8-10.8)
[2019-08-29 04:36] LABS: ANION GAP 6.5 mmol/L (8-16); CALCIUM 7.7 mg/dL (8.5-10.1); CARBON DIOXIDE 32.4 mmol/L (21.0-32.0); CREATININE - SERUM 0.9 mg/dL (0.6-1.3); MAGNESIUM - SERUM 1.6 mg/dL (1.8-2.4); PHOSPHOROUS 1.9 mg/dL (2.5-4.9)
[2019-08-29 04:42] VITALS: BP 136/62
[2019-08-29 04:45] LABS: POTASSIUM - SERUM 2.9 mmol/L (3.5-5.1)
--- NOTE | 2019-08-29 11:06 | NUR ---
Rehab Note- [facility] and she has reviewed the patient's medical record is currently sending it over to their medical i d sales and will notify us as soon as she gets a determination from their medical i d sales on whether it is an approved acute inpatient rehab stay. Will continue to follow at this time. THank you for this referral! Jessica Torres RN Clinical Liaison, [facility] Rehab
[2019-08-29 12:01] VITALS: BP 115/60
[2019-08-29 13:56] LABS: PHOSPHOROUS 1.9 mg/dL (2.5-4.9); POTASSIUM - SERUM 4.4 mmol/L (3.5-5.1)
--- NOTE | 2019-08-29 14:15 | NUR ---
SPOKE WITH FATUMA IN [facility] ABOUT PT'S PHOSPHORUS LEVEL STILL BEING 1.9. PER EP I ASKED HIM TO MAKE ME A 15MM PHOSPHORUS BAG AND HE STATED HE WOULD.
[2019-08-29 14:18] VITALS: BP 102/46
--- NOTE | 2019-08-29 16:09 | NUR ---
I have reviewed this patient and I concur with the Shift Assessment completed by the Licensed Practical Nurse today this shift.
[2019-08-29] MEDS ORDERED: AMIODARONE HCL200 MG PO (17:37)
--- NOTE | 2019-08-29 18:35 | NUR ---
DISCHARGE INSTRUCTIONS AND TEACHING DONE WITH PT AND PT'S DAUGHTER. THEY HAVE NO FURTHER QUESTIONS. DAUGHTER SIGNED PT'S DISCHARGE PAPERS. DC'D TLELEMTRY. RIGHT FA 20G IV DC'D WITH CATH INTACT. DAUGHTER SIGNED DC PAPERS SHE STATES PT CAN NOT SIGN. DAUGHTER STATES HER SON TOOK PT'S SHOES HOME SO THEY HAVE TO BRING THEM BACK AND SHE WILL LET US KNOW WHEN THEY GET HERE. I VERBALIZED UNDERSTNADING.
--- NOTE | 2019-08-29 19:29 | NUR ---
PT TAKEN DOWN VIA WC BY SCREW DRIVER OPERATOR ACCOMAPNIED BY DAUGHTER AND LEFT IN PERSONAL CAR.
--- NOTE | 2019-08-29 19:37 | NUR ---
OT NOTE: PT DAUGHTER STATED PT WAS UP ALL NIGHT. PT COMPLETED SUPINE TO SIT WITH MIN/MOD A. PT COMPLETED ADL MOB WITH MON/MOD A. PT COMPLETED FACE WASHING WITH SETUP IN CHAIR. [phone] THANK YOU,VERONICA BRINK
--- NOTE | 2019-09-01 08:16 | MORECARE ---
CASE MANAGEMENT DISCHARGE SUMMARY PATIENT: TELLY SORENSEN UNIT: [id number] ADM DATE: 08/25/19 AGE: 83 : 37 SEX: F ROOM/BED: D.2103 AUTHOR: LORIN,DOC PHYSICIAN: REFERRING PHYSICIAN: BAM CLAIRE DO DATE OF SERVICE: 09/01/19 Discharge Plan Patient Name: TLELY [facility]ORENSEN [facility] [facility] 1935 Planned Disposition: Inpatient Rehab Anticipated Discharge Date: Discharge Date: 08/29/2019 Expected LOS: Initial Reviewer: [email or web address] Initial Review Date: 08/27/2019 Generated: 09/01/19 9:16 am DCP- Discharge Planning Updated by [email or web address]: Kee Guadarrama on 08/27/19 1:[address] Patient Name: TELLY SORENSEN Admission Status: ER Accout number: [id number] Admission Date: 08-25-2019 : 1935 Admission Diagnosis: Attending: BAM CLAIRE Current LOS: 2 Anticipated DC Date: Planned Disposition: Inpatient Rehab Primary Insurance: [employer] MEDICARE ADV PLANNED EXTERNAL PROVIDER: [facility] INPATIENT REHAB Discharge Planning Comments: CM RECEIVED INPATIENT REHAB PRESCREENING ORDER. CM MET WITH PT IN ROOM TO DISCUSS DISCHARGE PLANNING AND NEEDS. PT REPORTS LIVING AT HOME DEPENDENTLY WITH HER ADULT DAUGHTER WHO ASSISTS WITH TOILETING. PT HAS NO MEDICAL EQUIPMENT AND NO OUTSIDE SERVICES ASSISTING IN THE HOME. CM DISCUSSED AVAILABILITY OF HOME HEALTH, REHAB SERVICES AND MEDICAL EQUIPMENT. PT WANTS REHAB AT [facility] AND WILL NOT CONSIDER [facility] FOR [facility]. CHOICE SIGNED. CM WAITING THERAPY EVALUATIONS WELL INPATIENT REHAB PRESCREENING RESULTS FROM [facility] IN[facility]. Environmental Technician: Kee Guadarrama DCPIA - Discharge Planning Initial Assessment Updated by [id number]: Kee Guadarrama on 08/27/19 2:22 pm * Is the patient Alert and Oriented? Yes * How many steps to enter\exit or inside your home? NONE * PCP DR. FLAHERTY * Pharmacy [facility] * Preadmission Environment Home with Family * ADLs Partial Dependent * Partial ADLs (Assistance needed) Toileting * Equipment None * Other Equipment NO MEDICAL EQUIPMENT PROVIDER PREFERENCE * List name and contact numbers for known caregivers / representatives who currently or will assist patient after discharge: NATALIA MARCY, DTR, * Verbal permission to speak to the caregivers and representatives has been obtained from the patient. Yes * Community resources currently utilized Home Health * Please name any agencies selected above. [facility] * Additional services required to return to the preadmission environment? Yes * Can the patient safely return to the preadmission environment? Yes * Has this patient been hospitalized within the prior 30 days at any hospital? No External Providers External Provider: SHANKARWOWIO Next Contact Date: 09/01/2019 Service Request Date: Service Type: Resolution: Reviewer: Comments: Coverage Notice Reviewer: [email or web address] Jelani Guadarrama Notice Issued Date-Time: 08/27/2019 14:10 Notice Type: Patient Choice Letter Notice Delivered To: Patient Relationship to Patient: Operations Manager Station Name: Delivery Method: HAND - Hand Delivered Lucy Days: Prior Verbal Notification: Recipient Understood Notice: Yes Recipient Signature: Yes Med Rec Note Co-signed by Attending: Coverage Notice Comment: [facility] INPATIENT REH[facility] Last DP export: 08/27/19 1:27 p Patient Name: TELLY SORENSEN Page [phone] at 0816 All edits/amendments must be made on the electronic document DICTATION DATE: 09/01/19815 MIDDLE SCHOOL TEACHER: CHANEL 09/01/19815 RPT#: [id number] DC DATE:08/29/19 STATUS: DIS IN [facility] [address] [place] [address] END OF REPORT
--- NOTE | 2019-09-01 08:23 | MORECARE ---
CASE MANAGEMENT DISCHARGE SUMMARY PATIENT: TELLY SORENSEN UNIT: [id number] ADM DATE: 08/25/19 AGE: 83 : 37 SEX: F ROOM/BED: D.2103 AUTHOR: LORIN,DOC PHYSICIAN: REFERRING PHYSICIAN: BAM CLAIRE DO DATE OF SERVICE: 09/01/19 Discharge Plan Patient Name: TELLY SORENSEN Facility: [facility]:[place] : 1935 Planned Disposition: Home with Home Health Anticipated Discharge Date: 08/29/19 Discharge Date: 08/29/2019 Expected LOS: 4 Initial Reviewer: [email or web address] Initial Review Date: 08/27/2019 Generated: 09/01/19 9:22 am Comments DCP- Discharge Planning Updated by [email or web address]: Kee Guadarrama on 09/01/19 7:[address] Patient Name: TELLY SORENSEN Encounter No: [id number] : 1935 Primary Insurance: [employer] MEDICARE ADV Anticipated DC Date: 08-29-2019 Planned Disposition: Home WITH HOME HEALTH External Planned Provider: [facility] DCP follow-up note: CM REVIEWED CHART, PT WAS DISCHARGE HOME WITH HOME HEALTH RESUMPTION. CM FAXED DISCHARGE INFORMATION TO [facility] AT [phone], CM NOTIFIED [facility] AT [facility], . DAHIANA Portillo DCP- Discharge Planning Updated by [email or web address]: Kee Guadarrama on 08/27/19 1:[address] Patient Name: TELLY SORENSEN Admission Status: ER Accout number: [id number] Admission Date: 08-25-2019 : 1935 Admission Diagnosis: Attending: BAM CLAIRE Current LOS: 2 Anticipated DC Date: Planned Disposition: Inpatient Rehab Primary Insurance: [employer] MEDICARE ADV PLANNED EXTERNAL PROVIDER: [facility] INPATIENT RE[facility] Discharge Planning Comments: CM RECEIVED INPATIENT REHAB PRESCREENING ORDER. CM MET WITH PT IN ROOM TO DISCUSS DISCHARGE PLANNING AND NEEDS. PT REPORTS LIVING AT HOME DEPENDENTLY WITH HER ADULT DAUGHTER WHO ASSISTS WITH TOILETING. PT HAS NO MEDICAL EQUIPMENT AND NO OUTSIDE SERVICES ASSISTING IN THE HOME. CM DISCUSSED AVAILABILITY OF HOME HEALTH, REHAB SERVICES AND MEDICAL EQUIPMENT. PT WANTS REHAB AT [facility] AND WILL NOT CONSIDER [facility] FOR [facility]. CHOICE SIGNED. CM WAITING THERAPY EVALUATIONS WELL INPATIENT REHAB PRESCREENING RESULTS FROM [facility] INPAT[facility] RE[facility]. Quality Systems Engineer: Kee Guadarrama DCPIA - Discharge Planning Initial Assessment Updated by [id number]: Kee Guadarrama on 08/27/19 2:22 pm * Is the patient Alert and Oriented? Yes * How many steps to enter\exit or inside your home? NONE * PCP DR. FLAHERTY * Pharmacy [facility] [place] * Preadmission Environment Home with Family * ADLs Partial Dependent * Partial ADLs (Assistance needed) Toileting * Equipment None * Other Equipment NO MEDICAL EQUIPMENT PROVIDER PREFERENCE * List name and contact numbers for known caregivers / representatives who currently or will assist patient after discharge: NATALIA VIDAL DTR, * Verbal permission to speak to the caregivers and representatives has been obtained from the patient. Yes * Community resources currently utilized Home Health * Please name any agencies selected above. [facility] * Additional services required to return to the preadmission environment? Yes * Can the patient safely return to the preadmission environment? Yes * Has this patient been hospitalized within the prior 30 days at any hospital? No Coverage Notice Reviewer: [id number] - Kee Guadarrama Notice Issued Date-Time: 08/27/2019 14:10 Notice Type: Patient Choice Letter Notice Delivered To: Patient Relationship to Patient: Cushion Padder Name: Delivery Method: HAND - Hand Delivered Lucy Days: Prior Verbal Notification: Recipient Understood Notice: Yes Recipient Signature: Yes Med Rec Note Co-signed by Attending: Coverage Notice Comment: [facility] INPATIENT RE[facility] Last DP export: 09/01/19 7:16 a Patient Name: TELLY SORENSEN Page [phone] at 0823 All edits/amendments must be made on the electronic document DICTATION DATE: 09/01/19821 BRISKET PULLER: CHANEL 09/01/19821 RPT#: [id number] DC DATE:08/29/19 STATUS: DIS IN [facility] [address] [place] [address] END OF REPORT
--- NOTE | 2019-09-02 11:24 | CN ---
PATIENT NAME:TELLY HENRIQUEZ MEDICAL RECORD: [id number] : 39 LOCATION:D.M2 D.2103 ADMIT DATE: 08/25/19 ACCOUNT: [id number] CONSULTING PHYSICIAN: SHANIQUA GARCÍA MD REFERRING PHYSICIAN: BAM CLAIRE DO DATE OF CONSULTATION: 08/26/2019 DIAGNOSES: 1. Syncope. 2. Cardiomyopathy. 3. Premature ventricular contractions. 4. Dementia. 5. Hypertension. HISTORY OF PRESENT ILLNESS: Mrs. Henriquez had an episode of syncope, it was witnessed by her daughter. She was out for only a few seconds, a sternal rub revived her. She has had 4 episodes of syncope, 1 in July, 1 in November, 1 a month ago, and then this episode. Her telemetry is significant for frequent PVCs. She was having bradycardia last admission, we discontinued the Bystolic. PHYSICAL EXAMINATION: CONSTITUTIONAL/GENERAL APPEARANCE: Well nourished, well developed, appears stated age. EYES: Lids and conjunctivae noninjected. No discharge. No pallor. ENT: Lips within normal limit. No cyanosis. No pallor. NECK: Carotid arteries, bilateral normal upstroke. No bruits. No thrills. No jugular venous pressure or distention. CERVICAL LYMPH NODES: Nontender. Nonenlarged. THYROID: Not enlarged. No nodules. CARDIOVASCULAR: Precordial exam, nondisplaced. No heaves or pericardial thrills. Rate and rhythm, regular. Heart sounds, normal S1, normal S2. No S3, no gallop, no rub. Systolic murmur, not heard. Diastolic murmur, not heard. RESPIRATORY: Respiratory effort, unlabored. Normal curvature. No thoracic deformity. No chest wall tenderness. Percussion, resonant. Auscultation, clear. No wheezes, no rales, no rhonchi. ABDOMEN: Soft, nondistended, nontender. No abdominal pain, no vomiting and normal appetite. MUSCULOSKELETAL: No joint tenderness, normal gait, normal tone. SKIN: Warm and dry. OVERALL IMPRESSION: Cardiomyopathy with multiple PVCs. Most likely this was arrhythmogenic etiology of the syncope. We have done a multiday monitor on her in the past that has been uneventful; however, this was on the Bystolic. We will start her on Cordarone. We will give 400 mg a day and then 200 mg a day thereafter. Hopefully, this will control the PVCs and dysrhythmia and avoid further episodes of syncope. No other cardiac workup or treatment is necessary. TRANSINT:[id number] Voice Confirmation ID: [id number] DOCUMENT ID: [id number] CONSULT REPORT [id number] TELLY HENRIQUEZ, SHANIQUA SAPP at 1124 CC: [id number] DICTATION DATE: 08/26/19924 GIS SOFTWARE ENGINEER: 08/26/19 1225 DIS IN 08/29/19 [id number] [place] [address]
== END 2019-08-29 19:30 | disposition home health service (06) | DRG 69 ==
LOC: D.ER 20:39 → D.M2 22:50
PROVIDERS: Emergency Medicine; ADMIT Family Medicine; ATTEND Family Medicine
DX: I67.81 Acute cerebrovascular insufficiency (principal); N39.0 Urinary tract infection, site not specified; I50.20 Unspecified systolic (congestive) heart failure; I42.9 Cardiomyopathy, unspecified; I49.5 Sick sinus syndrome; G30.9 Alzheimer's disease, unspecified; F02.80 Dementia in other diseases classified elsewhere, unspecified severity, without behavioral disturbance, psychotic disturbance, mood disturbance, and anxiety; I11.0 Hypertensive heart disease with heart failure; E78.5 Hyperlipidemia, unspecified; M19.90 Unspecified osteoarthritis, unspecified site; I73.9 Peripheral vascular disease, unspecified; I49.3 Ventricular premature depolarization; R55 Syncope and collapse; Z86.73 Personal history of transient ischemic attack (TIA), and cerebral infarction without residual deficits

== ENCOUNTER 2019-10-03 07:31 | Inpatient (IN) | payer MEDICARE, MEDICAID ==
--- NOTE | 2019-10-01 19:10 | NUR ---
BEDSIDE REPORT RECEIVED FROM DAY SHIFT, PT CARE ASSUMED. INTRODUCED SELF AND WROTE NAME ON BOARD. PT SITTING UP IN BED, VISITING WITH DAUGHTER AT BEDSIDE, A&A DISORIENTED TO TIME AND SITUATION, REORIENTED. DENIES ANY NEEDS AT THIS TIME. BED IN LOWEST POSITION, SR X3, CALL LIGHT WITHIN REACH. WILL CONTINUE TO MONITOR.
[~2019-10-03] VITALS: Ht 167.6 cm; Wt 81.6 kg
[~2019-10-03 07:31] MED LIST changes: +AMIODARONE HCL200 MG PO; +DONEPEZIL HCL10 MG PO; +FLAGYL500 MG PO
[2019-10-03 08:07] LABS: HEMATOCRIT 45.4 % (36.0-48.0); HEMOGLOBIN 14.7 g/dL (12-16); MCH 28.4 pg (26.0-34.0); MCHC 32.4 g/dL (31.0-37.0); MCV 87.6 fL (80.0-100.0); MEAN PLATELET VOLUME 11.2 fL (7.4-10.4); PLATELET COUNT 276 10x3/uL (130-400); RBC 5.18 10x6/uL (4.00-5.40); RDW 18.1 % (11.5-14.5); WBC 11.6 10x3/uL (4.8-10.8)
[2019-10-03 08:19] LABS: ANION GAP 10.9 mmol/L (8-16); CALCIUM 8.8 mg/dL (8.5-10.1); CARBON DIOXIDE 32.6 mmol/L (21.0-32.0); CREATININE - SERUM 1.2 mg/dL (0.6-1.3); POTASSIUM - SERUM 3.5 mmol/L (3.5-5.1)
[2019-10-03 08:25] LABS: ALBUMIN 2.6 g/dL (3.4-5.0); BILIRUBIN - TOTAL 1.48 mg/dL (0.2-1.3); PROTEIN - SERUM 7.1 g/dL (6.4-8.2)
--- NOTE | 2019-10-03 09:00 | NUR ---
URINE TO LAB
[2019-10-03 09:19] LABS: LYMPHOCYTES 8 % (15-50); MONOCYTES 2 % (2-11); NEUTROPHILS 90 % (40-80); PLATELET ESTIMATE NORMAL
[2019-10-03 09:20] LABS: SCHISTOCYTES OCC; TARGET CELLS 1+
[2019-10-03 09:36] LABS: BILIRUBIN NEGATIVE (NEGATIVE); GLUCOSE NEGATIVE (NEGATIVE); KETONE NEGATIVE (NEGATIVE); NITRITE NEGATIVE (NEGATIVE); SPECIFIC GRAVITY 1.015 (1.005-1.020); UROBILINOGEN 4 mg/dL (NORMAL)
[2019-10-03 09:37] LABS: BACTERIA FEW /hpf (NEGATIVE); EPITHELIAL CELLS 0-5 /hpf (0-5); RED CELLS - URINE 0-5 /hpf (0-5)
[2019-10-03 11:56] VITALS: BP 150/62
--- NOTE | 2019-10-03 12:09 | NUR ---
LEVAQUIN INFUSING AT 100 ML/H AND NS 0.9% INFUSING AT 75 ML/H UPON TRANSFER TO ROOM
[2019-10-03 12:36] VITALS: BP 126/75; BMI 29.1
[2019-10-03 13:50] VITALS: BP 126/75
[2019-10-03 17:37] VITALS: BP 151/67
--- NOTE | 2019-10-03 19:10 | NUR ---
BEDSIDE REPORT RECEIVED FROM DAY SHIFT, PT CARE ASSUMED. INTRODUCED SELF AND WROTE NAME ON BOARD. PT SITTING UP IN BED, WATCHING TV, AAOX4. DENIES ANY NEEDS, AT THIS TIME. BED IN LOWEST POSITION, SR X2, CALL LIGHT WITHIN REACH. WILL CONTINUE TO MONITOR.
[2019-10-03 20:00] VITALS: BP 150/78
[2019-10-04] VITALS: BP 122/68
[2019-10-04 06:41] LABS: BASOPHILS 0.1 % (0-2); EOSINOPHILS 0.1 % (0-7); HEMATOCRIT 41.2 % (36.0-48.0); HEMOGLOBIN 13.2 g/dL (12-16); IMMATURE GRANULOCYTES 0.4 % (0-5); LYMPHOCYTES 3.7 % (15-50); MCV 87.3 fL (80.0-100.0); MEAN PLATELET VOLUME 11.4 fL (7.4-10.4); MONOCYTES 7.8 % (2-11); NEUTROPHILS 87.9 % (40-80); PLATELET COUNT 257 10x3/uL (130-400); RBC 4.72 10x6/uL (4.00-5.40); WBC 13.6 10x3/uL (4.8-10.8)
[2019-10-04 07:15] LABS: ALBUMIN 2.1 g/dL (3.4-5.0); ANION GAP 8.8 mmol/L (8-16); BILIRUBIN - TOTAL 0.86 mg/dL (0.2-1.3); CALCIUM 7.7 mg/dL (8.5-10.1); CARBON DIOXIDE 32.2 mmol/L (21.0-32.0); CREATININE - SERUM 0.9 mg/dL (0.6-1.3); PROTEIN - SERUM 5.6 g/dL (6.4-8.2)
[2019-10-04 08:48] VITALS: BP 115/55
[2019-10-04 12:50] VITALS: BMI 29.0
[2019-10-04 13:01] VITALS: BP 110/54
--- NOTE | 2019-10-04 13:36 | NUR ---
RESTING IN BED, FAMILY IN ROOM, LESS CONFUSION TODAY PER FAMILY, IV INFUSING, CONT TO MONITOR
[2019-10-04 16:34] VITALS: BP 118/67
[2019-10-04 19:46] VITALS: BP 119/57
--- NOTE | 2019-10-04 21:10 | NUR ---
LYING QUEITLY WITH NO DISTRESS NOTED. O2 @ 4L PER NC ON. RESP UNALBORED. IV TO RIGHT WRIST INTACT WITHOUT REDNESS OR EDEMA NOTED. CL IN REACH. FAMILY AT BEDSIDE.
[2019-10-05] VITALS: BP 150/60
--- NOTE | 2019-10-05 03:00 | NUR ---
I have reviewed this patient and I concur with the Shift Assessment completed by the Licensed Practical Nurse today this shift.
[2019-10-05 06:18] LABS: BASOPHILS 0 % (0-2); EOSINOPHILS 1.1 % (0-7); HEMATOCRIT 39.5 % (36.0-48.0); HEMOGLOBIN 12.4 g/dL (12-16); IMMATURE GRANULOCYTES 0.3 % (0-5); LYMPHOCYTES 9.3 % (15-50); MCH 27.7 pg (26.0-34.0); MCHC 31.4 g/dL (31.0-37.0); MCV 88.4 fL (80.0-100.0); MEAN PLATELET VOLUME 11.4 fL (7.4-10.4); MONOCYTES 9.1 % (2-11); NEUTROPHILS 80.2 % (40-80); PLATELET COUNT 219 10x3/uL (130-400); RBC 4.47 10x6/uL (4.00-5.40); RDW 18.3 % (11.5-14.5); WBC 12.2 10x3/uL (4.8-10.8)
[2019-10-05 06:41] LABS: ALBUMIN 1.9 g/dL (3.4-5.0); ANION GAP 7.8 mmol/L (8-16); BILIRUBIN - TOTAL 0.83 mg/dL (0.2-1.3); CALCIUM 8.3 mg/dL (8.5-10.1); CARBON DIOXIDE 31.1 mmol/L (21.0-32.0); CREATININE - SERUM 0.8 mg/dL (0.6-1.3); PHOSPHOROUS 1.9 mg/dL (2.5-4.9); POTASSIUM - SERUM 3.9 mmol/L (3.5-5.1); PROTEIN - SERUM 5.4 g/dL (6.4-8.2)
[2019-10-05 07:52] VITALS: BP 128/49
--- NOTE | 2019-10-05 11:01 | NUR ---
RESTING IN BED, FAMILY IN ROOM, PURE WICK IN PLACE, URINE CONCENTRATED, CONT TO MONITOR CONFUSION AND INTAKE
[2019-10-05 11:54] VITALS: BP 129/55
[2019-10-05 16:07] VITALS: BP 135/59
--- NOTE | 2019-10-05 17:46 | NUR ---
INFORMED SAIMA OF PT TEA COLORED URINE AND HE REQUESTED A UA BE DONE, PT CURRENTLY HAS A URINE CULTURE GROWING IN LAB SHOWING + RESULTS
--- NOTE | 2019-10-05 18:36 | NUR ---
SPOKE WITH SAIMA AGAIN, PT HAS CULTURE IN LAB GROWING + RESULTS, CONT TO MONITOR OUTPUT AND WILL GET FINAL RESULTS OF CULTURE IN AM
--- NOTE | 2019-10-05 19:10 | NUR ---
BEDSIDE REPORT RECEIVED FROM DAY SHIFT, PT CARE ASSUMED. WROTE NAME ON BOARD. PT SITTING UP IN BED, WATCHING TV, AAOX2, REORIENTED TO TIME AND SITUATION. DENIES ANY NEEDS AT THIS TIME. DAUGHTER AT BEDSIDE. BED IN LOWEST POSITION, SR X3, CALL LIGHT WITHIN REACH. WILL CONTINUE TO MONITOR.
[2019-10-05 20:00] VITALS: BP 137/65
[2019-10-06] VITALS: BP 121/52
[2019-10-06 04:00] VITALS: BP 136/65
[2019-10-06 05:11] LABS: BASOPHILS 0.1 % (0-2); EOSINOPHILS 0.4 % (0-7); HEMATOCRIT 40.2 % (36.0-48.0); HEMOGLOBIN 12.8 g/dL (12-16); IMMATURE GRANULOCYTES 1.3 % (0-5); LYMPHOCYTES 6.4 % (15-50); MCH 27.5 pg (26.0-34.0); MCHC 31.8 g/dL (31.0-37.0); MEAN PLATELET VOLUME 10.7 fL (7.4-10.4); MONOCYTES 7.2 % (2-11); NEUTROPHILS 84.6 % (40-80); PLATELET COUNT 218 10x3/uL (130-400); RBC 4.66 10x6/uL (4.00-5.40); RDW 18.1 % (11.5-14.5)
[2019-10-06 05:15] LABS: MCV 86.3 fL (80.0-100.0); WBC 7.5 10x3/uL (4.8-10.8)
[2019-10-06 05:22] LABS: ALBUMIN 1.9 g/dL (3.4-5.0); ANION GAP 9.5 mmol/L (8-16); BILIRUBIN - TOTAL 0.96 mg/dL (0.2-1.3); CALCIUM 8.2 mg/dL (8.5-10.1); CARBON DIOXIDE 28.2 mmol/L (21.0-32.0); CREATININE - SERUM 0.8 mg/dL (0.6-1.3); MAGNESIUM - SERUM 1.9 mg/dL (1.8-2.4); PHOSPHOROUS 2.3 mg/dL (2.5-4.9); POTASSIUM - SERUM 3.7 mmol/L (3.5-5.1); PROTEIN - SERUM 5.3 g/dL (6.4-8.2)
[2019-10-06 08:40] VITALS: BP 135/52
--- NOTE | 2019-10-06 11:25 | NUR ---
I have reviewed this patient and I concur with the Shift Assessment completed by the Licensed Practical Nurse today this shift.
[2019-10-06 12:12] VITALS: BP 112/52
--- NOTE | 2019-10-06 13:20 | NUR ---
Nutrition follow-up: Pts sister sent pt turkey, dressing, salad, green peas and mac & cheese for lunch. Pts daughter states pt ate ~60% of this meal. Diet: Mechanical soft labs reviewed Wt: 180# RDN following.
[2019-10-06 16:01] VITALS: BP 119/53
--- NOTE | 2019-10-06 19:30 | NUR ---
PT LYING IN BED RESTING WITHOUT DISTRESS, ORIENTED TO SELF ONLY. DAUGHTER AT BEDSIDE. PUREWICK IN PLACE. IV RIGHT WRIST INFUSING NS @ 75. O2 4L/NC. DENIES NEEDS. CL IN REACH, WILL CTM
[2019-10-06 20:00] VITALS: BP 127/58
--- NOTE | 2019-10-06 21:30 | NUR ---
PT TOOK MEDS CRUSHED IN APPLESAUCE. DAUGHTER STATES PT HAS STARTED HALLUCINATING AGAIN STATING SHE WAS SEEING THINGS ON HER HANDS. PT ALSO WAS BEING UNCOOPERATIVE TAKING MEDS. SHE DID NOT WANT TO TAKE THEM AT FIRST, DAUGHTER HAD TO TALK TO HER AND HAD TO BE DIRECTED TO TAKE A BITE, SWALLOW AND DRINK WATER. DAUGHTER STATES SHE HAS NOT DONE THIS SINCE SHE WAS FIRST ADMITTED. CALMOSEPTINE PLACE ON PT BUTTOCK. PT AND DAUGHTER DENY FURTHER NEEDS. CL IN REACH, WILL CTM
[2019-10-07] VITALS: BP 145/60
[2019-10-07 04:00] VITALS: BP 135/62
[2019-10-07 06:30] LABS: BASOPHILS 0 % (0-2); HEMOGLOBIN 10.6 g/dL (12-16); IMMATURE GRANULOCYTES 0.5 % (0-5); MCH 27.6 pg (26.0-34.0); MCHC 32.1 g/dL (31.0-37.0); MCV 85.9 fL (80.0-100.0); MEAN PLATELET VOLUME 10.4 fL (7.4-10.4); MONOCYTES 11.4 % (2-11); NEUTROPHILS 75.1 % (40-80); PLATELET COUNT 203 10x3/uL (130-400); RBC 3.84 10x6/uL (4.00-5.40)
[2019-10-07 06:34] LABS: WBC 11.5 10x3/uL (4.8-10.8)
[2019-10-07 07:11] LABS: ALBUMIN 1.6 g/dL (3.4-5.0); BILIRUBIN - TOTAL 0.76 mg/dL (0.2-1.3); CALCIUM 7.8 mg/dL (8.5-10.1); CARBON DIOXIDE 29.5 mmol/L (21.0-32.0); CREATININE - SERUM 0.8 mg/dL (0.6-1.3); MAGNESIUM - SERUM 1.8 mg/dL (1.8-2.4); PHOSPHOROUS 2.5 mg/dL (2.5-4.9); POTASSIUM - SERUM 3.5 mmol/L (3.5-5.1); PROTEIN - SERUM 4.2 g/dL (6.4-8.2)
--- NOTE | 2019-10-07 07:55 | NUR ---
PT RESTING IN BED ON RIGHT SIDE. PT REPOSITIONED TO BACK AT THIS TIME. FAMILY AT BEDSIDE. IV TO RIGHT WRIST WITH NS @ 75ML/HR INFUSING VIA PUMP. SITE WITHOUT REDNESS OR EDEMA. O2 @ 4L HIFLO IN PLACE. DENIES NEEDS AT THIS TIME. CL WITHIN REACH. ENCOURAGED TO CALL WITH NEEDS. CONTINUE POC
[2019-10-07 09:11] VITALS: BP 129/63
--- NOTE | 2019-10-07 09:36 | MORECARE ---
CASE MANAGEMENT DISCHARGE SUMMARY PATIENT: TELLY SORENSEN UNIT: [id number] ADM DATE: 10/03/19 AGE: 83 : 37 SEX: F ROOM/BED: D.2210 AUTHOR: PONCHO PADGETT PHYSICIAN: REFERRING PHYSICIAN: THU DE LA CRUZ MD DATE OF SERVICE: 10/07/19 Discharge Plan Patient Name: TELLY SORENSEN [facility] [facility] 1935 Planned Disposition: Home with Home Health Anticipated Discharge Date: Discharge Date: Expected LOS: Initial Reviewer: [email or web address] Initial Review Date: 10/03/2019 Generated: 10/07/19 10:35 am DCPIA - Discharge Planning Initial Assessment Updated by [email or web address]: Edie Peña on 10/07/19 9:35 am * Is the patient Alert and Oriented? Yes * PCP KRYSTINA * Pharmacy [facility] * Preadmission Environment Home with Family * ADLs Partial Dependent * Partial ADLs (Assistance needed) Eating Toileting * Equipment Hospital Bed Rolling Walker Walker Wheelchair * List name and contact numbers for known caregivers / representatives who currently or will assist patient after discharge: NATALIA (DAUGHTER) [phone] [place]NI [place] * Verbal permission to speak to the caregivers and representatives has been obtained from the patient. Yes * Community resources currently utilized Home Health * Please name any agencies selected above. CURRENT WITH [facility] * Additional services required to return to the preadmission environment? Yes * Has this patient been hospitalized within the prior 30 days at any hospital? Yes Patient Name: TELLY SORENSEN Page [phone] at 0936 All edits/amendments must be made on the electronic document DICTATION DATE: 10/07/19934 RISK CONTROL OFFICER: CHANEL 10/07/19934 RPT#: [id number] DC DATE: STATUS: ADM IN [facility] [address] [place] [address] END OF REPORT
--- NOTE | 2019-10-07 09:42 | MORECARE ---
CASE MANAGEMENT DISCHARGE SUMMARY PATIENT: TELLY SORENSEN UNIT: [id number] ADM DATE: 10/03/19 AGE: 83 : 37 SEX: F ROOM/BED: D.2210 AUTHOR: LORINDOC PHYSICIAN: REFERRING PHYSICIAN: THU DE LA CRUZ MD DATE OF SERVICE: 10/07/19 Discharge Plan Patient Name: TELLY SORENSEN Facility: [facility]:[place] : 1935 Planned Disposition: Home with Home Health Anticipated Discharge Date: Discharge Date: Expected LOS: Initial Reviewer: [email or web address] Initial Review Date: 10/03/2019 Generated: 10/07/19 10:42 am Comments DCP- Discharge Planning Updated by [email or web address]: Edie Peña on 10/07/19 8:[address] Patient Name: TELLY SORENSEN Admission Status: ER Accout number: [id number] Admission Date: 10-03-2019 : 1935 Admission Diagnosis:DRUG INDUCED AKATHISIA Attending: THU DE LA CRUZ Current LOS: 4 Anticipated DC Date: Planned Disposition: Home with Home Health Primary Insurance: [employer] ADV Discharge Planning Comments: CM met with patient & son Giovanni to complete initial dc planning assessment. CM educated patient on the CM role and verbal consent given by patient to complete assessment. Patient lives at home with her daughter Natalia where she is partially dependent with her care. At discharge Giovanni is unsure to where she needs/ wants to go. He stated I needed to talk to Natalia. CM discussed availability of home health, rehab services, and medical equipment. She is current with [facility] and has a hospital bed, walker and wheelchair. Patient was nonverbal when I was asking questions, but would shake her head yes and no. I am unsure if this is normal or not. CM will continue to follow and will assist as needed with dc plans/needs. Prior Authorization Nurse: Edie Peña DCPIA - Discharge Planning Initial Assessment Updated by [email or web address]: Edie Peña on 10/07/19 9:35 am * Is the patient Alert and Oriented? Yes * PCP KRYSTINA * Pharmacy [facility] * Preadmission Environment Home with Family * ADLs Partial Dependent * Partial ADLs (Assistance needed) Eating Toileting * Equipment Hospital Bed Rolling Walker Walker Wheelchair * List name and contact numbers for known caregivers / representatives who currently or will assist patient after discharge: NATALIA (DAUGHTER) [phone] GIOVANNI VID[place] * Verbal permission to speak to the caregivers and representatives has been obtained from the patient. Yes * Community resources currently utilized Home Health * Please name any agencies selected above. CURRENT WITH [facility] * Additional services required to return to the preadmission environment? Yes * Has this patient been hospitalized within the prior 30 days at any hospital? Yes Last DP export: 10/07/19 8:36 am Patient Name: TELLY SORENSEN Page [phone] at 0942 All edits/amendments must be made on the electronic document DICTATION DATE: 10/07/19941 COMMERCIAL MARKETING SPECIALIST: CHANEL 10/07/19941 RPT#: [id number] DC DATE: STATUS: ADM IN [facility] [address] [place] [address] END OF REPORT
[2019-10-07 13:31] VITALS: BP 125/92
[2019-10-07 14:01] VITALS: Ht 167.6 cm; Wt 81.6 kg
[2019-10-07 18:08] VITALS: BP 148/60
--- NOTE | 2019-10-07 18:28 | NUR ---
OTN NOTE: PT COMPLETED ORAL HYGIENE TASKS WITH MOD A. PT COMPLETED FACE WASH WITH MIN A. PT COMPLETED UE AROM EXS TOLERATED. [id number] THANK YOU,VERONICA BRINK
--- NOTE | 2019-10-07 19:40 | NUR ---
AWAKE. LYING ON LT SIDE IN BED. NONVERBAL AT TIMES AND JUST NODS HEAD TO ANSWER QUESTIONS. DAUGHTER AT BEDSIDE. RESP EVEN AND NONLABORED. O2 @ 4L/NC. INCONT OF B/B AT THIS TIME. PUREWICK IN USE. STAGE 2 NOTED TO COCCYX AND LT GLUTEAL FOLD. CALMOSEPTINE APPLIED AT THIS TIME. REPOSITIONED TO RT SIDE. DENIES PAIN. NS @ 75 MLHR INFUSING IN LT FOREARM. ELIJAH ALARM ON. CL IN REACH.
[2019-10-07 20:00] VITALS: BP 132/73
--- NOTE | 2019-10-07 21:30 | NUR ---
INCONT OF BLADDER. PERICARE PERFORMED. REPOSITIONED FOR COMFORT. CL IN REACH. ELIJAH ON.
--- NOTE | 2019-10-07 23:30 | NUR ---
REPOSITIONED TO BACK. INCONT OF BLADDER EVEN THOUGH PUREWICK IS IN PLACE. PERICARE PERFORMED AT THIS TIME. CL IN REACH. BED ALARM ON.
[2019-10-08] VITALS: BP 143/61
--- NOTE | 2019-10-08 01:40 | NUR ---
REPOSITIONED FOR COMFORT. NO DISTRESS. ELIJAH ON. CL IN REACH.
--- NOTE | 2019-10-08 03:30 | NUR ---
REPOSITIONED TO LT SIDE. CL IN REACH. NO DISTRESS. ELIJAH ON
[2019-10-08 04:00] VITALS: BP 143/56
[2019-10-08 05:12] LABS: BASOPHILS 0.1 % (0-2); EOSINOPHILS 1.9 % (0-7); HEMATOCRIT 33.9 % (36.0-48.0); HEMOGLOBIN 10.9 g/dL (12-16); IMMATURE GRANULOCYTES 0.5 % (0-5); LYMPHOCYTES 10.4 % (15-50); MCH 27.7 pg (26.0-34.0); MCHC 32.2 g/dL (31.0-37.0); MCV 86.3 fL (80.0-100.0); MEAN PLATELET VOLUME 10.7 fL (7.4-10.4); NEUTROPHILS 76.1 % (40-80); PLATELET COUNT 216 10x3/uL (130-400); RBC 3.93 10x6/uL (4.00-5.40); WBC 11.8 10x3/uL (4.8-10.8)
--- NOTE | 2019-10-08 05:35 | NUR ---
INCONT OF B/B. CALMOSEPTINE APPLIED TO BUTTOCKS. REPOSITIONED TO LT SIDE. CL IN REACH. HAS RESTED WELL. ELIJAH ON.
[2019-10-08 05:44] LABS: ALBUMIN 1.7 g/dL (3.4-5.0); ALKALINE PHOSPHATASE 68 U/L (30-120); BILIRUBIN - TOTAL 0.61 mg/dL (0.2-1.3); CALC OSMOLALITY 277 mosm/kg (275-300); CALCIUM 7.6 mg/dL (8.5-10.1); CARBON DIOXIDE 27.4 mmol/L (21.0-32.0); CHLORIDE - SERUM 109 mmol/L (98-107); CREATININE - SERUM 0.7 mg/dL (0.6-1.3); GLUCOSE 75 mg/dL (74-106); MAGNESIUM - SERUM 1.9 mg/dL (1.8-2.4); PHOSPHOROUS 2.3 mg/dL (2.5-4.9); POTASSIUM - SERUM 3.7 mmol/L (3.5-5.1); PROTEIN - SERUM 5.1 g/dL (6.4-8.2); SODIUM 141 mmol/L (136-145); UREA NITROGEN 8 mg/dL (7-18); eGFR NON AFRICAN AMERICAN 85 mL/min (90-120)
[2019-10-08 05:47] LABS: ALT (SGPT) 14 U/L (10-68)
--- NOTE | 2019-10-08 06:33 | NUR ---
PUREWICK IN PLACE WITH URINE IN CANISTER. PT IS CLEAN AND DRY. CL IN REACH. ELIJAH ON. NO DISTRESS.
--- NOTE | 2019-10-08 08:00 | NUR ---
PATIENT IN BED WITH EYES CLOSED. OPENS TO SPEECH. NO COMPLAINTS OR SIGNS OF DISTRESS. IV INTACT. CALL LIGHT WITHIN REACH.
[2019-10-08 09:53] VITALS: BP 133/51
[2019-10-08] MEDS ORDERED: COLACE100 MG PO (11:50)
[2019-10-08] MEDS ORDERED: PROTONIX40 MG PO (11:50)
[2019-10-08] MEDS ORDERED: MUCINEX600 MG PO (11:50)
[2019-10-08] MEDS ORDERED: FLORAJEN3 CAPS460 MG PO (11:50)
[2019-10-08] MEDS ORDERED: TESSALON PERLE100 MG PO (11:50)
[2019-10-08] MEDS ORDERED: ZYVOX600 MG PO (11:51)
[2019-10-08] MEDS ORDERED: LEVOFLOXACIN500 MG PO (11:51)
--- NOTE | 2019-10-08 12:30 | NUR ---
PATIENT SITTING UP IN BED EATING. ASSISTED BY FAMILY. IV INTACT. CALL LIGHT WITHIN REACH.
--- NOTE | 2019-10-08 13:41 | MORECARE ---
CASE MANAGEMENT DISCHARGE SUMMARY PATIENT: TELLY SORENSEN UNIT: [id number] ADM DATE: 10/03/19 AGE: 83 : 37 SEX: F ROOM/BED: D.2210 AUTHOR: LORIN,DOC PHYSICIAN: REFERRING PHYSICIAN: THU DE LA CRUZ MD DATE OF SERVICE: 10/08/19 Discharge Plan Patient Name: TELLY SORENSEN Facility: [facility]:[place] : 1935 Planned Disposition: Home with Home Health Anticipated Discharge Date: Discharge Date: Expected LOS: Initial Reviewer: [id number] Initial Review Date: 10/03/2019 Generated: 10/08/19 2:41 pm Comments DCP- Discharge Planning Updated by [email or web address]: Edie ePña on 10/08/19 12:[address] PATIENT WILL BE DISCHARGING HOME TODAY WITH [facility], SHE WAS 95-98% ON ROOM AIR SO WILL NOT NEED O2. HER SON IS AT THE BEDSIDE AND HER DAUGHTER WILL BE HER DOCKET CLERK HOME. IMM SERVED AND EXPLAINED. ROLDAN SIGNED AND PLACED IN CHART AND I HAVE NOTIFIED RAY WITH [facility] TO LET HIM KNOW OF DISCHARGE DCP- Discharge Planning Updated by [id number]: Edie Peña on 10/07/19 8:[address] Patient Name: TELLY SORENSEN Admission Status: ER Accout number: [id number] Admission Date: 10-03-2019 : 1935 Admission Diagnosis:DRUG INDUCED AKATHISIA Attending: THU DE LA CRUZ Current LOS: 4 Anticipated DC Date: Planned Disposition: Home with Home Health Primary Insurance: [employer] ADV Discharge Planning Comments: CM met with patient & son Giovanni to complete initial dc planning assessment. CM educated patient on the CM role and verbal consent given by patient to complete assessment. Patient lives at home with her daughter Natalia where she is partially dependent with her care. At discharge Giovanni is unsure to where she needs/ wants to go. He stated I needed to talk to Natalia. CM discussed availability of home health, rehab services, and medical equipment. She is current with [facility] and has a hospital bed, walker and wheelchair. Patient was nonverbal when I was asking questions, but would shake her head yes and no. I am unsure if this is normal or not. CM will continue to follow and will assist as needed with dc plans/needs. Pasta Maker: Edie Peña DCPIA - Discharge Planning Initial Assessment Updated by [id number]: Edie Peña on 10/07/19 9:35 am * Is the patient Alert and Oriented? Yes * PCP KRYSTINA * Pharmacy [facility] * Preadmission Environment Home with Family * ADLs Partial Dependent * Partial ADLs (Assistance needed) Eating Toileting * Equipment Hospital Bed Rolling Walker Walker Wheelchair * List name and contact numbers for known caregivers / representatives who currently or will assist patient after discharge: NATALIA (DAUGHTER) [phone] GIOVANNI VIDAL * Verbal permission to speak to the caregivers and representatives has been obtained from the patient. Yes * Community resources currently utilized Home Health * Please name any agencies selected above. CURRENT WITH [facility] * Additional services required to return to the preadmission environment? Yes * Has this patient been hospitalized within the prior 30 days at any hospital? Yes Coverage Notice Reviewer: [id number] - Eide Peña Notice Issued Date-Time: 10/08/2019 13:30 Notice Type: Patient Choice Letter Notice Delivered To: Family Member Relationship to Patient: Son Feature Writer Name: Delivery Method: HAND - Hand Delivered Lucy Days: Prior Verbal Notification: Recipient Understood Notice: Yes Recipient Signature: Yes Med Rec Note Co-signed by Attending: Coverage Notice Comment: Reviewer: [id number] - Edie Peña Notice Issued Date-Time: 10/08/2019 13:30 Notice Type: IM Discharge Notice Notice Delivered To: Patient Relationship to Patient: Son Feature Writer Name: Delivery Method: HAND - Hand Delivered Lucy Days: Prior Verbal Notification: Recipient Understood Notice: Yes Recipient Signature: Yes Med Rec Note Co-signed by Attending: Coverage Notice Comment: Last DP export: 10/07/19 8:42 am Patient Name: TELLY SORENSEN Page [phone] at 1341 All edits/amendments must be made on the electronic document DICTATION DATE: 10/08/19 1341 SOFTWARE SALES REPRESENTATIVE: CHNAEL 10/08/19 1341 RPT#: [id number] DC DATE: STATUS: ADM IN [facility] [address] [place] [address] END OF REPORT
--- NOTE | 2019-10-08 13:49 | MORECARE ---
CASE MANAGEMENT DISCHARGE SUMMARY PATIENT: TELLY SORENSEN UNIT: [id number] ADM DATE: 10/03/19 AGE: 83 : 37 SEX: F ROOM/BED: D.2210 AUTHOR: LORIN,DOC PHYSICIAN: REFERRING PHYSICIAN: THU DE LA CRUZ MD DATE OF SERVICE: 10/08/19 Discharge Plan Patient Name: TELLY SORENSEN Facility: [facility]:[place] : 1935 Planned Disposition: Home with Home Health Anticipated Discharge Date: Discharge Date: Expected LOS: Initial Reviewer: [email or web address] Initial Review Date: 10/03/2019 Generated: 10/08/19 2:48 pm Comments DCP- Discharge Planning Updated by [id number]: Edie Peña on 10/08/19 12:[address] PATIENT WILL BE DISCHARGING HOME TODAY WITH [facility], SHE WAS 95-98% ON ROOM AIR SO WILL NOT NEED O2. HER SON IS AT THE BEDSIDE AND HER DAUGHTER WILL BE HER SCREEN PRINT OPERATOR HOME. IMM SERVED AND EXPLAINED. ROLDAN SIGNED AND PLACED IN CHART AND I HAVE NOTIFIED RAY WITH [facility] TO LET HIM KNOW OF DISCHARGE DCP- Discharge Planning Updated by [email or web address]: Edie Peña on 10/07/19 8:[address] Patient Name: TELLY SORENSEN Admission Status: ER Accout number: [id number] Admission Date: 10-03-2019 : 1935 Admission Diagnosis:DRUG INDUCED AKATHISIA Attending: THU DE LA CRUZ Current LOS: 4 Anticipated DC Date: Planned Disposition: Home with Home Health Primary Insurance: [employer]ICARE ADV Discharge Planning Comments: CM met with patient & son Giovanni to complete initial dc planning assessment. CM educated patient on the CM role and verbal consent given by patient to complete assessment. Patient lives at home with her daughter Natalia where she is partially dependent with her care. At discharge Giovanni is unsure to where she needs/ wants to go. He stated I needed to talk to Natalia. CM discussed availability of home health, rehab services, and medical equipment. She is current with [facility] and has a hospital bed, walker and wheelchair. Patient was nonverbal when I was asking questions, but would shake her head yes and no. I am unsure if this is normal or not. CM will continue to follow and will assist as needed with dc plans/needs. Contract Negotiator: Edie Peña DCPIA - Discharge Planning Initial Assessment Updated by [id number]: Edie Peña on 10/07/19 9:35 am * Is the patient Alert and Oriented? Yes * PCP KRYSTINA * Pharmacy [facility] * Preadmission Environment Home with Family * ADLs Partial Dependent * Partial ADLs (Assistance needed) Eating Toileting * Equipment Hospital Bed Rolling Walker Walker Wheelchair * List name and contact numbers for known caregivers / representatives who currently or will assist patient after discharge: NATALIA (DAUGHTER) [phone] GIOVANNI VIDAL * Verbal permission to speak to the caregivers and representatives has been obtained from the patient. Yes * Community resources currently utilized Home Health * Please name any agencies selected above. CURRENT WITH [facility] * Additional services required to return to the preadmission environment? Yes * Has this patient been hospitalized within the prior 30 days at any hospital? Yes External Providers [facility] Next Contact Date: Service Request Date: Service Type: Resolution: Reviewer: Comments: Coverage Notice Reviewer: [id number] Jelani Peña Notice Issued Date-Time: 10/08/2019 13:30 Notice Type: Patient Choice Letter Notice Delivered To: Family Member Relationship to Patient: Son Weatherization Technician Name: Delivery Method: HAND - Hand Delivered Lucy Days: Prior Verbal Notification: Recipient Understood Notice: Yes Recipient Signature: Yes Med Rec Note Co-signed by Attending: Coverage Notice Comment: Reviewer: [id number] Jelani Peña Notice Issued Date-Time: 10/08/2019 13:30 Notice Type: IM Discharge Notice Notice Delivered To: Patient Relationship to Patient: Son Weatherization Technician Name: Delivery Method: HAND - Hand Delivered Lucy Days: Prior Verbal Notification: Recipient Understood Notice: Yes Recipient Signature: Yes Med Rec Note Co-signed by Attending: Coverage Notice Comment: Last DP export: 10/08/19 12:41 pm Patient Name: TELLY SORENSEN Page [phone] at 1349 All edits/amendments must be made on the electronic document DICTATION DATE: 10/08/19 1348 TEXTILE SLITTING MACHINE OPERATOR: CHANEL 10/08/19 1348 RPT#: [id number] DC DATE: STATUS: ADM IN [facility] [address] [place] [address] END OF REPORT
--- NOTE | 2019-10-08 15:14 | NUR ---
OT NOTE: PRIOR TO PERFORMING BED MOB, PT HAD BM AND REQUIRED TOTAL ASSIST WITH PERINEAL CARE. SEVERAL OPEN AREAS NOTED AND NURSING APPLIED BARRIER CREAM TO AREAS. ROLLING IN BED WITH MOD ASSIST; SUPINE TO SIT WITH MAX ASSIST. STATIC SITTING BALANCE WITH MOD/MAX ASSIST TODAY. PT WITH INCREASED DIFFICULTY NOTED WITH BALANCE AND MOVEMENT ON R SIDE. PT VERY APPRAXIC IN LIMBS OF R SIDE. PT PUSHING VERY HARD TO THE LEFT DURING SITTING AND STANDING. UNABLE TO COORDINATE ANY MOVEMENTS ON R SIDE ( MUCH WORSE THAN YESTERDAY). ATTEMPTED SIT TO STAND WITH WALKER, HOWEVER, PT UNABLE TO KEEP R FOOT IN WT BEARING AND UNABLE TO KEEP R HAND ON WALKER. PT THEN HAD TO BE TRANSFERRED FROM BED TO CHAIR WITH MAX ASSIST X 2..(PT DID NOT BEAR WT ON EITHER LEG FOR TRANSFER TODAY. ) REPOSITIONED IN CHAIR WITH MAX ASSIST X 2.. PT WAS ABLE TO ATTEMPT TO WASH FACE ADN HANDS WITH CLOTH, BUT REQUIRED MOD ASSIST FOR FULL TASK. PT TOLERATED SITTING UP IN CHAIR FOR APPROX 3 HRS. ASSISTED PT BACK TO BED IN AFTERNOON..AGIAN, UNABLE TO MAINTAIN UPRIGHT STATIC SITTING. MAX ASSIST FOR SITTING; MAX ASSIST X 2 FOR TRANSFER BACK TO BED AND BED MOB. MET WITH CM TO DISCUSS DC.. FAMILY AT HOME TO ASSIST, HOWEVER, IM NOT SURE PT WAS REQUIRING THIS MUCH ASSIST PREVIOUSLY. NO FAMILY AVAILABLE IN AFTERNOON. STEPHY SARKAR, OTR/L [phone]
--- NOTE | 2019-10-08 15:15 | NUR ---
PATIENT AND DAUGHTER RECIEVED DC INSTRUCTIONS. VERBALIZED UNDERSTANDING. PATIENT IV REMOVED WITH CATH TIP INTACT. NO COMPLAINTS OR SIGNS OF DISTRESS. UP IN WC WITH CLOTHES ON. EXPLAINED TO MIDDLE SCHOOL ASSISTANT PRINCIPAL PRESCRIPTIONS AT PHARMACY. NO QUESTIONS AT THIS TIME. ESCORTED OUT OF HOSPITAL WITH PERSONAL BELONGINGS TO PRIVATE VEHICLE BY [facility].
--- NOTE | 2019-10-09 12:34 | MORECARE ---
CASE MANAGEMENT DISCHARGE SUMMARY PATIENT: TELLY SORENSEN UNIT: [id number] ADM DATE: 10/03/19 AGE: 83 : 37 SEX: F ROOM/BED: D.2210 AUTHOR: LORIN,DOC PHYSICIAN: REFERRING PHYSICIAN: TUH DE LA CRUZ MD DATE OF SERVICE: 10/09/19 Discharge Plan Patient Name: TELLY SORENSEN Facility: [facility]:[place] : 1935 Planned Disposition: Home with Home Health Anticipated Discharge Date: Discharge Date: 10/08/2019 Expected LOS: 0 Initial Reviewer: [id number] Initial Review Date: 10/03/2019 Generated: 10/09/19 1:34 pm Comments DCP- Discharge Planning Updated by [email or web address]: Edie Peña on 10/08/19 12:[address] PATIENT WILL BE DISCHARGING HOME TODAY WITH [email or web address], SHE WAS 95-98% ON ROOM AIR SO WILL NOT NEED O2. HER SON IS AT THE BEDSIDE AND HER DAUGHTER WILL BE HER DEVELOPMENT VICE PRESIDENT HOME. IMM SERVED AND EXPLAINED. ROLDAN SIGNED AND PLACED IN CHART AND I HAVE NOTIFIED RAY WITH [facility] TO LET HIM KNOW OF DISCHARGE DCP- Discharge Planning Updated by [email or web address]: Edie Peña on 10/07/19 8:[address] Patient Name: TELLY SORENSEN Admission Status: ER Accout number: [id number] Admission Date: 10-03-2019 : 1935 Admission Diagnosis:DRUG INDUCED AKATHISIA Attending: THU DE LA CRUZ Current LOS: 4 Anticipated DC Date: Planned Disposition: Home with Home Health Primary Insurance: [employer]ICARE ADV Discharge Planning Comments: CM met with patient & son Giovanni to complete initial dc planning assessment. CM educated patient on the CM role and verbal consent given by patient to complete assessment. Patient lives at home with her daughter Natalia where she is partially dependent with her care. At discharge Giovanni is unsure to where she needs/ wants to go. He stated I needed to talk to Natalia. CM discussed availability of home health, rehab services, and medical equipment. She is current with [facility] and has a hospital bed, walker and wheelchair. Patient was nonverbal when I was asking questions, but would shake her head yes and no. I am unsure if this is normal or not. CM will continue to follow and will assist as needed with dc plans/needs. Laminating Machine Operator Helper: Edie Peña DCPIA - Discharge Planning Initial Assessment Updated by [id number]: Edie Peña on 10/07/19 9:35 am * Is the patient Alert and Oriented? Yes * PCP KRYSTINA * Pharmacy [facility] * Preadmission Environment Home with Family * ADLs Partial Dependent * Partial ADLs (Assistance needed) Eating Toileting * Equipment Hospital Bed Rolling Walker Walker Wheelchair * List name and contact numbers for known caregivers / representatives who currently or will assist patient after discharge: NATALIA (DAUGHTER) [phone] GIOVANNI VIDAL * Verbal permission to speak to the caregivers and representatives has been obtained from the patient. Yes * Community resources currently utilized Home Health * Please name any agencies selected above. CURRENT WITH [email or web address] * Additional services required to return to the preadmission environment? Yes * Has this patient been hospitalized within the prior 30 days at any hospital? Yes Coverage Notice Reviewer: [id number] Jelani Peña Notice Issued Date-Time: 10/08/2019 13:30 Notice Type: Patient Choice Letter Notice Delivered To: Family Member Relationship to Patient: Son Branch Rental Manager Name: Delivery Method: HAND - Hand Delivered Lucy Days: Prior Verbal Notification: Recipient Understood Notice: Yes Recipient Signature: Yes Med Rec Note Co-signed by Attending: Coverage Notice Comment: Reviewer: [id number] Jelani Peña Notice Issued Date-Time: 10/08/2019 13:30 Notice Type: IM Discharge Notice Notice Delivered To: Patient Relationship to Patient: Son Branch Rental Manager Name: Delivery Method: HAND - Hand Delivered Lucy Days: Prior Verbal Notification: Recipient Understood Notice: Yes Recipient Signature: Yes Med Rec Note Co-signed by Attending: Coverage Notice Comment: Last DP export: 10/08/19 12:49 pm Patient Name: TELLY SORENSEN Page 11762 at 1234 All edits/amendments must be made on the electronic document DICTATION DATE: 10/09/19 1234 BLACK TOP ROLLER: CHANEL 10/09/19 1234 RPT#: [id number] DC DATE:10/08/19 STATUS: DIS IN [place] [id number] [place] [address] END OF REPORT
== END 2019-10-08 15:15 | disposition home health service (06) | DRG 56 ==
LOC: D.ER 07:31 → D.MS 10:20
PROVIDERS: Emergency Medicine; ADMIT Internal Medicine Nephrology; ATTEND Internal Medicine Nephrology
DX: G25.71 Drug induced akathisia (principal); G93.41 Metabolic encephalopathy; N39.0 Urinary tract infection, site not specified; I50.22 Chronic systolic (congestive) heart failure; J98.11 Atelectasis; T43.595A Adverse effect of other antipsychotics and neuroleptics, initial encounter; E86.0 Dehydration; R47.02 Dysphasia; I11.0 Hypertensive heart disease with heart failure; I73.9 Peripheral vascular disease, unspecified; E78.5 Hyperlipidemia, unspecified; M19.90 Unspecified osteoarthritis, unspecified site; G30.9 Alzheimer's disease, unspecified; F02.80 Dementia in other diseases classified elsewhere, unspecified severity, without behavioral disturbance, psychotic disturbance, mood disturbance, and anxiety; F12.90 Cannabis use, unspecified, uncomplicated

== ENCOUNTER 2019-12-06 19:48 | Inpatient (IN) | payer MEDICARE, MEDICAID ==
[~2019-12-06] VITALS: Ht 167.6 cm; Wt 63.0 kg
--- NOTE | ~2019-12-06 | EEG ---
PATIENT:TELLY SORENSEN MEDICAL RECORD: [id number] DATE OF : [birth year] LOCATION:D.210 D.M2 ADMISSION DATE: 12/06/19 REFERRING PHYSICIAN: INTERPRETING PHYSICIAN: DEVYN SWEET MD DATE OF SERVICE: 12/08/2019 ROOM: #2109 ORDERED BY: Dr. Sweet. CASE HISTORY: An 84-year-old female with reported spell of staring and poor responsiveness associated with hypotension and bradycardia with known history of Alzheimer's with differential of seizure. PROCEDURE: EEG done as a routine bedside portable recording using the standard 10-20 international electrode system, 16 channels used for 17th as EKG. Photic stimulation done as activation procedure. DESCRIPTION: EEG opens with the patient awake with the record displaying low to moderate amplitude background. Some obscured by EMG movement artifact. Background frequencies was seen at 9-10 Hz. Occasional bilateral independent single theta slow waves were seen some with high voltage and sharp contour. No epileptiform change such as spike, polyspike, or spike and wave were seen. Photic stimulation did not yield a photoparoxysmal response. IMPRESSION: Mildly abnormal EEG for age and diagnosis. Background slowing can be seen with Alzheimer dementia or with a delirium. No evidence of seizure disorder, was found on this recording. TRANSINT:[id number] Voice Confirmation ID: [id number] DOCUMENT ID: [id number] DEVYN SWEET MD CC: [id number] DICTATION DATE: 12/08/19 1228 PROJECT ENGINEERING MANAGER: 12/08/192101 ADM IN [facility] [address] [place] [address]
[~2019-12-06 19:48] MED LIST changes: +COLACE100 MG PO; +FLORAJEN3 CAPS460 MG PO; +LEVOFLOXACIN500 MG PO; +MUCINEX600 MG PO; +TESSALON PERLE100 MG PO; +ZYVOX600 MG PO
[2019-12-06 20:19] LABS: BASOPHILS 0.1 % (0-2); EOSINOPHILS 0.5 % (0-7); HEMATOCRIT 40.6 % (36.0-48.0); HEMOGLOBIN 13.2 g/dL (12-16); IMMATURE GRANULOCYTES 0.4 % (0-5); LYMPHOCYTES 21.8 % (15-50); MCH 28.7 pg (26.0-34.0); MCHC 32.5 g/dL (31.0-37.0); MCV 88.3 fL (80.0-100.0); MEAN PLATELET VOLUME 10.5 fL (7.4-10.4); MONOCYTES 9.9 % (2-11); NEUTROPHILS 67.3 % (40-80); PLATELET COUNT 254 10x3/uL (130-400); RDW 18.7 % (11.5-14.5); WBC 15.4 10x3/uL (4.8-10.8)
[2019-12-06 20:27] LABS: APTT 25.5 SECONDS (22.8-39.4); INR 0.91 (0.85-1.17); PROTIME 12.3 SECONDS (11.6-15.0)
[2019-12-06 20:30] VITALS: BP 102/53
--- NOTE | 2019-12-06 20:30 | NUR ---
RN SPOKE TO PT DAUGHTER VIA TELEPHONE,
--- NOTE | 2019-12-06 20:33 | NUR ---
PT RETURNED FROM CT VIA STRETCHER.
--- NOTE | 2019-12-06 20:41 | NUR ---
IN/OUT CATH PERFORMED. PT TOLERATED WELL.
[2019-12-06 20:43] LABS: BILIRUBIN NEGATIVE (NEGATIVE); GLUCOSE NEGATIVE (NEGATIVE); KETONE NEGATIVE (NEGATIVE); NITRITE NEGATIVE (NEGATIVE); UROBILINOGEN NORMAL (NORMAL)
[2019-12-06 20:43] LABS: ALBUMIN 2.1 g/dL (3.4-5.0); ALKALINE PHOSPHATASE 120 U/L (30-120); ALT (SGPT) 8 U/L (10-68); BILIRUBIN - TOTAL 0.74 mg/dL (0.2-1.3); CARBON DIOXIDE 30.4 mmol/L (21.0-32.0); CHLORIDE - SERUM 105 mmol/L (98-107); CREATINE KINASE 20 UL (21-215); CREATININE - SERUM 1.1 mg/dL (0.6-1.3); MAGNESIUM - SERUM 2.1 mg/dL (1.8-2.4); PRO BNP 1828 pg/mL (0-450); SODIUM 144 mmol/L (136-145); THYROID STIMULATING HORMONE 1.79 uIU/mL (0.36-3.74); UREA NITROGEN 9 mg/dL (7-18); eGFR NON AFRICAN AMERICAN 50 mL/min (90-120)
[2019-12-06 20:44] LABS: CALC OSMOLALITY 288 mosm/kg (275-300); GLUCOSE 155 mg/dL (74-106); LIPASE 45 U/L (73-393); TROPONIN-I < 0.017 ng/mL (0.000-0.060)
[2019-12-06 20:45] LABS: POTASSIUM - SERUM 2.6 mmol/L (3.5-5.1)
[2019-12-06 20:57] LABS: UDS - AMPHET NEGATIVE QUAL (NEGATIVE); UDS - BARB NEGATIVE QUAL (NEGATIVE); UDS - BENZO NEGATIVE QUAL (NEGATIVE); UDS - COCAINE NEGATIVE QUAL (NEGATIVE); UDS - OPIATE NEGATIVE QUAL (NEGATIVE); UDS - PCP NEGATIVE QUAL (NEGATIVE); UDS - THC POSITIVE QUAL (NEGATIVE)
[2019-12-06 21:33] VITALS: BP 63/33
--- NOTE | 2019-12-06 21:33 | NUR ---
PT NOTED ON THE MONITOR BRADYCARDIC AND HYPOTENSIVE. RN TO PT BEDSIDE. PT WAKES TO VERBAL STIMULI AND DENIES PAIN OR OTHER COMPLAINTS. EDP NOTIFIED.
[2019-12-06 21:35] VITALS: BP 70/40
[2019-12-06 21:39] VITALS: BP 93/50
--- NOTE | 2019-12-06 21:50 | NUR ---
PT BP AND PULSE WNL. PT DENIES NEEDS OR COMPLAINTS.
[2019-12-06] MEDS ORDERED: CLARITIN 10 MG10 MG PO (23:32)
[2019-12-07] VITALS: BP 112/57
[2019-12-07 04:00] VITALS: BP 114/38
[2019-12-07 05:34] LABS: BASOPHILS 0 % (0-2); EOSINOPHILS 0 % (0-7); HEMATOCRIT 37.8 % (36.0-48.0); IMMATURE GRANULOCYTES 0.4 % (0-5); LYMPHOCYTES 5.9 % (15-50); MCH 28.1 pg (26.0-34.0); MCHC 31.7 g/dL (31.0-37.0); MCV 88.5 fL (80.0-100.0); MEAN PLATELET VOLUME 10.5 fL (7.4-10.4); MONOCYTES 7.9 % (2-11); NEUTROPHILS 85.8 % (40-80); PLATELET COUNT 237 10x3/uL (130-400); RBC 4.27 10x6/uL (4.00-5.40); RDW 18.8 % (11.5-14.5)
[2019-12-07 06:03] LABS: ALBUMIN 1.8 g/dL (3.4-5.0); ALKALINE PHOSPHATASE 104 U/L (30-120); CALC OSMOLALITY 287 mosm/kg (275-300); CALCIUM 7.8 mg/dL (8.5-10.1); CARBON DIOXIDE 32.2 mmol/L (21.0-32.0); CHLORIDE - SERUM 107 mmol/L (98-107); CREATININE - SERUM 0.9 mg/dL (0.6-1.3); GLUCOSE 132 mg/dL (74-106); PRO BNP 1435 pg/mL (0-450); PROTEIN - SERUM 5.3 g/dL (6.4-8.2); SODIUM 144 mmol/L (136-145); TROPONIN-I < 0.017 ng/mL (0.000-0.060); UREA NITROGEN 9 mg/dL (7-18); eGFR NON AFRICAN AMERICAN 63 mL/min (90-120)
[2019-12-07 06:09] LABS: ALT (SGPT) 5 U/L (10-68); POTASSIUM - SERUM 3.3 mmol/L (3.5-5.1)
[2019-12-07 09:18] VITALS: BP 143/76
--- NOTE | 2019-12-07 09:44 | NUR ---
RESTING IN BED, NO DISTRESS NOTED, NPO FOR TEST, CONT TO MONITOR
--- NOTE | 2019-12-07 12:20 | NUR ---
TAKEN TO MRI PER CART
[2019-12-07 17:23] VITALS: BP 138/75
--- NOTE | 2019-12-07 19:30 | NUR ---
RECEIVED REPORT, WILL ASSUME CARE OF PT, CONFUSED, NO DISTRESS NOTICED AT THIS TIME, BED IS LOW, SRX3, CALL LIGHT IN REACH, WILL CONTINUE PLAN OF CARE, BED ALARM IS ON
[2019-12-07 20:00] VITALS: BP 139/65
[2019-12-08] VITALS: BP 116/80
[2019-12-08 04:00] VITALS: BP 120/54
--- NOTE | 2019-12-08 05:16 | NUR ---
I have reviewed this patient and I concur with the Shift Assessment completed by the Licensed Practical Nurse today this shift.
[2019-12-08 06:20] LABS: ANION GAP 9.8 mmol/L (8-16); BILIRUBIN - TOTAL 0.77 mg/dL (0.2-1.3); CALCIUM 8.5 mg/dL (8.5-10.1); CARBON DIOXIDE 32.3 mmol/L (21.0-32.0); POTASSIUM - SERUM 3.1 mmol/L (3.5-5.1); PROTEIN - SERUM 6.3 g/dL (6.4-8.2)
[2019-12-08 06:22] LABS: BASOPHILS 0.1 % (0-2); EOSINOPHILS 0.5 % (0-7); HEMATOCRIT 42.4 % (36.0-48.0); HEMOGLOBIN 13.7 g/dL (12-16); IMMATURE GRANULOCYTES 0.2 % (0-5); LYMPHOCYTES 8.8 % (15-50); MCH 28.5 pg (26.0-34.0); MCHC 32.3 g/dL (31.0-37.0); MCV 88.1 fL (80.0-100.0); MEAN PLATELET VOLUME 11.1 fL (7.4-10.4); MONOCYTES 7.8 % (2-11); NEUTROPHILS 82.6 % (40-80); PLATELET COUNT 236 10x3/uL (130-400); RBC 4.81 10x6/uL (4.00-5.40); WBC 12.9 10x3/uL (4.8-10.8)
[2019-12-08 06:34] LABS: ALBUMIN 2.3 g/dL (3.4-5.0)
[2019-12-08 08:13] VITALS: BP 155/85
--- NOTE | 2019-12-08 12:09 | NUR ---
Pt was admitted on 12/07/19. It is noted that she arrived to M2 with a stage 2 pressure injury on her coccyx. Measurements are 1cm x 0.5cm x 0.1cm. No drainage or odor is noted. Right heel is red and blanchable. Skin is dry and peeling. Heels are elevated. Recommended calmoseptine cream and putting pt on a turn q 2 schedule. Wound care will continue monitoring.
[2019-12-08 12:21] VITALS: BP 143/71
[2019-12-08 16:27] VITALS: BP 153/76
--- NOTE | 2019-12-08 16:30 | NUR ---
ORTHOSTATICS LYING 153/76 SITTING 148/74 P 77 P 80 R 16 R 18 PT UNABLE TO STAND
--- NOTE | 2019-12-08 19:20 | NUR ---
RECEIVED REPORT, WILL ASSUME CARE OF PT, SLEEPING NO DISTRESS NOTICED AT THIS TIME, BED IS LOW, SRX2, CALL LIGHT IN REACH, WILL CONTINUE PLAN OF CARE
[2019-12-08 23:55] VITALS: BP 144/62
[2019-12-09 05:35] LABS: BASOPHILS 0.1 % (0-2); EOSINOPHILS 0.1 % (0-7); HEMATOCRIT 43.9 % (36.0-48.0); HEMOGLOBIN 14.2 g/dL (12-16); IMMATURE GRANULOCYTES 0.5 % (0-5); LYMPHOCYTES 5.1 % (15-50); MCH 28.8 pg (26.0-34.0); MCHC 32.3 g/dL (31.0-37.0); MEAN PLATELET VOLUME 11.5 fL (7.4-10.4); MONOCYTES 6.5 % (2-11); NEUTROPHILS 87.7 % (40-80); PLATELET COUNT 260 10x3/uL (130-400); RBC 4.93 10x6/uL (4.00-5.40); RDW 18.9 % (11.5-14.5)
[2019-12-09 06:16] LABS: WBC 17.8 10x3/uL (4.8-10.8)
[2019-12-09 06:55] LABS: ALBUMIN 2.3 g/dL (3.4-5.0); BILIRUBIN - TOTAL 0.75 mg/dL (0.2-1.3); CALCIUM 8.4 mg/dL (8.5-10.1); CARBON DIOXIDE 29.1 mmol/L (21.0-32.0); CREATININE - SERUM 0.8 mg/dL (0.6-1.3); PROTEIN - SERUM 6.7 g/dL (6.4-8.2)
[2019-12-09 07:00] LABS: ANION GAP 9.5 mmol/L (8-16); POTASSIUM - SERUM 3.6 mmol/L (3.5-5.1)
[2019-12-09 08:29] VITALS: BP 122/65
[2019-12-09 11:08] VITALS: Ht 167.6 cm; Wt 63.0 kg
[2019-12-09 12:22] VITALS: BP 138/81
--- NOTE | 2019-12-09 12:39 | NUR ---
BLOOD SUGAR OF 91, NO COVERAGE NEEDED PER S/S. PT RESTING COMFORTABLY IN BED, WILL HELP HER EAT HER LUNCH.
[2019-12-09 17:13] VITALS: BP 127/56
--- NOTE | 2019-12-09 17:29 | NUR ---
BLOOD SUGAR OF 131, NO COVERAGE NEEDED PER S/S.
--- NOTE | 2019-12-09 19:15 | NUR ---
REPORT RECEIVED, WILL CONTINUE POC. PATIENT IS ALERT BUT CONFUSED LYING ON LEFT SIDE. NO S/S OF DISTRESS OBSERVED, RR EVEN AND UNLABORED ON ROOM AIR. PIV TO LT AC, SL, CHI C/D/I. PATIENT DENIES NEEDS AT THIS TIME. CL IN REACH, BED LOCKED AND LOWERED. WILL CTM.
[2019-12-09 20:00] VITALS: BP 126/70
[2019-12-10] VITALS: BP 111/51
[2019-12-10 04:00] VITALS: BP 123/62
[2019-12-10 06:29] LABS: BASOPHILS 0.1 % (0-2); EOSINOPHILS 0.1 % (0-7); HEMATOCRIT 40.7 % (36.0-48.0); HEMOGLOBIN 12.8 g/dL (12-16); IMMATURE GRANULOCYTES 0.3 % (0-5); LYMPHOCYTES 3.2 % (15-50); MCH 28.1 pg (26.0-34.0); MCHC 31.4 g/dL (31.0-37.0); MCV 89.3 fL (80.0-100.0); MEAN PLATELET VOLUME 11.3 fL (7.4-10.4); MONOCYTES 8.3 % (2-11); PLATELET COUNT 269 10x3/uL (130-400); RBC 4.56 10x6/uL (4.00-5.40); RDW 18.8 % (11.5-14.5); WBC 17.6 10x3/uL (4.8-10.8)
[2019-12-10 07:03] LABS: ANION GAP 9.5 mmol/L (8-16); BILIRUBIN - TOTAL 0.72 mg/dL (0.2-1.3); CARBON DIOXIDE 31.1 mmol/L (21.0-32.0); CREATININE - SERUM 0.9 mg/dL (0.6-1.3); POTASSIUM - SERUM 3.6 mmol/L (3.5-5.1); PROTEIN - SERUM 5.3 g/dL (6.4-8.2)
[2019-12-10 08:00] VITALS: BP 134/71
--- NOTE | 2019-12-10 08:16 | EC ---
PATIENT:TELLY SORENSEN DATE OF SERVICE: 12/06/19 SEX: F MEDICAL RECORD: [id number] DATE OF : [birth year] LOCATION:D.M2 D.210 AGE OF PATIENT: 84 ADMISSION DATE: 12/06/19 REFERRING PHYSICIAN: INTERPRETING PHYSICIAN: FAIZA ZEPEDA MD ECHOCARDIOGRAM REPORT ECHO CHARGES 4 ECHO COMPLETE Date: 12/07/19 CLINICAL DIAGNOSIS: SYNCOPE ECHOCARDIOGRAPHIC MEASUREMENTS (adult normal given) AC root (d.<3.7cm) 3.1 cm LV Septum d (<1.2 cm> 1.2 cm Valve Excursion 2.1 cm LV Septum (systole) 1.3 cm Left Atria (s.<4.0cm> 3.5 cm LVPW d(<1.2cm) 1.2 cm RV (d.<2.3cm) 2.4 cm LVPW (sytole) 1.5 cm LV diastole(<5.6CM) 4.1 cm MV E-F(>70mm/sec) cm LV systole 2.7 cm LVOT Diameter 1.5 cm MV exc.(>10mm) 1.4 cm Est.ejection fraction (50-75%) % DOPPLER: LVIT cm/sec A 65.0 cm/sec E 34.0 cm/sec LA cm/sec RVSP 42 mmHg LVOT 74 cm/sec AOP1/2T m/s Asc. Ao 109 cm/sec RVOT 87 cm/sec RA cm/sec PA 103 cm/sec AV Gradient Peak 4.71 mmHg AV Mean 2.40 mmHg AV Area 1.12 cm MV Gradient Peak 2.42 mmHg MV Mean 0.87 mmHg MV Area cm COMMENTS: Target Network Analyst: 2 [employer] Attendance Secretary: 4 Dr. García TAPE# PACS Pericardial Effusion N DATE OF SERVICE: Adequate 2D, color flow imaging, spectral Doppler, and M-Mode. Borderline LVH. LV internal dimension is normal. LV appears to be mildly globally hypokinetic with EF mildly reduced. Estimated EF 40% to 45%. Aortic valve is tricuspid. No evidence of stenosis by Doppler interrogation. Left atrium is normal at 3.5 cm. Mitral valve shows no prolapse. Trace MR. Right-sided chambers are grossly normal. Mild TR. ECHOCARDIOGRAM REPORT [id number] TELLY SORENSEN TRANSINT:[id number] Voice Confirmation ID: [id number] DOCUMENT ID: [id number] FAIZA ZEPEDA MD at 0816 CC: [id number] DICTATION DATE: 12/08/19956 METHODS ANALYST DATA PROCESSING: 12/08/19 1254 ADM IN [facility] [address] [place] [id number]
--- NOTE | 2019-12-10 08:38 | NUR ---
AM MEDS GIVEN AT THIS TIME. ALSO HELPED PT WITH HER BREAKFAST. PT TOOK A FEW BITES. CALL LIGHT IN REACH, BEDSIDE RAILS X2, BED ALARM ON, NAD NOTED, WILL CONTINUE TO MONITOR.
[2019-12-10 12:00] VITALS: BP 135/69
--- NOTE | 2019-12-10 12:00 | MORECARE ---
CASE MANAGEMENT DISCHARGE SUMMARY PATIENT: TELLY SORENSEN UNIT: [id number] ADM DATE: 12/06/19 AGE: 84 : 37 SEX: F ROOM/BED: D.2109 AUTHOR: PONCHO PADGETT PHYSICIAN: REFERRING PHYSICIAN: THU DE LA CRUZ MD DATE OF SERVICE: 12/10/19 Discharge Plan Patient Name: TELLY SORENSEN [facility] [facility] 1935 Planned Disposition: Hospice Home Anticipated Discharge Date: Discharge Date: Expected LOS: Initial Reviewer: [email or web address] Initial Review Date: 12/06/2019 Generated: 12/10/19 12:59 pm External Providers External Provider: [facility] Next Contact Date: Service Request Date: Service Type: Resolution: Reviewer: Comments: Coverage Notice Reviewer: [id number] Jelani Crane Notice Issued Date-Time: 12/10/2019 11:30 Notice Type: Patient Choice Letter Notice Delivered To: Family Member Relationship to Patient: Daughter Semiconductor Processing Technician Name: Martha Tripp Delivery Method: PHONE - Phone Lucy Days: Prior Verbal Notification: Recipient Understood Notice: Recipient Signature: Yes Med Rec Note Co-signed by Attending: Coverage Notice Comment: Patient Choice for [facility]. Patient Name: TELLY SORENSEN Page 10009 at 1200 All edits/amendments must be made on the electronic document DICTATION DATE: 12/10/19 1159 TELEPHONE INTERVIEWER: CHANEL 12/10/19 1159 RPT#: [id number] DC DATE: STATUS: ADM IN [facility] [address] [place] [address] END OF REPORT
--- NOTE | 2019-12-10 12:08 | MORECARE ---
CASE MANAGEMENT DISCHARGE SUMMARY PATIENT: TELLY SORENSEN UNIT: [id number] ADM DATE: 12/06/19 AGE: 84 : 37 SEX: F ROOM/BED: D.210 AUTHOR: PONCHO PADGETT PHYSICIAN: REFERRING PHYSICIAN: THU DE LA CRUZ MD DATE OF SERVICE: 12/10/19 Discharge Plan Patient Name: TELLY SORENSEN [facility] [facility] 1935 Planned Disposition: Hospice Home Anticipated Discharge Date: Discharge Date: Expected LOS: Initial Reviewer: [email or web address] Initial Review Date: 12/06/2019 Generated: 12/10/19 1:08 pm External Providers External Provider: [facility]ides [facility] Next Contact Date: Service Request Date: Service Type: Resolution: Reviewer: Comments: Coverage Notice Reviewer: [id number] Jelani Crane Notice Issued Date-Time: 12/10/2019 11:30 Notice Type: Patient Choice Letter Notice Delivered To: Family Member Relationship to Patient: Daughter Commissioner Of Internal Revenue Name: Martha Tripp Delivery Method: PHONE - Phone Lucy Days: Prior Verbal Notification: Recipient Understood Notice: Recipient Signature: Yes Med Rec Note Co-signed by Attending: Coverage Notice Comment: Patient Choice for [facility]. Last DP export: 12/10/19 11:00 am Patient Name: TELLY SORENSEN Page 48864 at 1208 All edits/amendments must be made on the electronic document DICTATION DATE: 12/10/19 1208 FIRE DEPARTMENT MARINE ENGINEER: CHANLE 12/10/19 1208 RPT#: [id number] DC DATE: STATUS: ADM IN [facility] [address] [place] [address] END OF REPORT
--- NOTE | 2019-12-10 12:17 | MORECARE ---
CASE MANAGEMENT DISCHARGE SUMMARY PATIENT: TELLY SORENSEN UNIT: [id number] ADM DATE: 12/06/19 AGE: 84 : 39 SEX: F ROOM/BED: D.2109 AUTHOR: PONCHO PADGETT PHYSICIAN: REFERRING PHYSICIAN: THU DE LA CRUZ MD DATE OF SERVICE: 12/10/19 Discharge Plan Patient Name: TELLY SORENSEN Facility: [facility]:[place] : 1935 Planned Disposition: Hospice Home Anticipated Discharge Date: Discharge Date: Expected LOS: Initial Reviewer: [email or web address] Initial Review Date: 12/06/2019 Generated: 12/10/19 1:16 pm Comments DCP- Discharge Planning Updated by [email or web address]: Sharron Crane on 12/10/19 11:[address] CM received an order for Home Hospice. Contacted daughter, Martha Tripp [phone], regarding Home Hospice. Martha is in agreement to home hospice and her choice is [facility]. Patient Choice via telephone and placed on the chart. CM contacted Ariadna with [facility] , provided required information via phone and faxed requested information. Provided Martha's contact information and CM contact number. Coverage Notice Reviewer: [id number] - Sharron Crane Notice Issued Date-Time: 12/10/2019 11:30 Notice Type: Patient Choice Letter Notice Delivered To: Family Member Relationship to Patient: Daughter Drink Waiter Name: Martha Tripp Delivery Method: PHONE - Phone Lucy Days: Prior Verbal Notification: Recipient Understood Notice: Recipient Signature: Yes Med Rec Note Co-signed by Attending: Coverage Notice Comment: Patient Choice for [facility]. Last DP export: 12/10/19 11:08 am Patient Name: TELLY SORENSEN Page [phone] at 1217 All edits/amendments must be made on the electronic document DICTATION DATE: 12/10/196 DIRECT MARKETING EXECUTIVE: CHANEL 12/10/19 1216 RPT#: [id number] DC DATE: STATUS: ADM IN [address] [address] [address] [place] [address] END OF REPORT
--- NOTE | 2019-12-10 17:20 | NUR ---
CALLED [facility] AND SPOKE WITH GUILLERMO, [facility] WILL BE HERE TO PICK PT UP IN ABOUT 1HR.
--- NOTE | 2019-12-10 18:08 | NUR ---
[facility] HERE TO PICK PT UP. PT LEFT UNIT VIA STRETCHER WITH ALL BELONGINGS, NAD NOTED, NOTIFIED [facility].
--- NOTE | 2019-12-10 23:58 | MORECARE ---
CASE MANAGEMENT DISCHARGE SUMMARY PATIENT: TELLY SORENSEN UNIT: [id number] ADM DATE: 12/06/19 AGE: 84 : 39 SEX: F ROOM/BED: D.2109 AUTHOR: PONCHO PADGETT PHYSICIAN: REFERRING PHYSICIAN: THU DE LA CRUZ MD DATE OF SERVICE: 12/10/19 Discharge Plan Patient Name: TELLY SORENSEN Facility: [facility]:[place] : 1935 Planned Disposition: Hospice Home Anticipated Discharge Date: Discharge Date: 12/10/2019 Expected LOS: Initial Reviewer: [email or web address] Initial Review Date: 12/06/2019 Generated: 12/11/19 12:58 am Comments DCP- Discharge Planning Updated by [email or web address]: Sharron Crane on 12/10/19 11:[address] CM received an order for Home Hospice. Contacted daughter, Martha Tripp [phone], regarding Home Hospice. Martha is in agreement to home hospice and her choice is [facility]. Patient Choice via telephone and placed on the chart. CM contacted Ariadna with [facility] , provided required information via phone and faxed requested information. Provided Martha's contact information and CM contact number. Coverage Notice Reviewer: [email or web address] - Sharron Crane Notice Issued Date-Time: 12/10/2019 11:30 Notice Type: Patient Choice Letter Notice Delivered To: Family Member Relationship to Patient: Daughter Instant Potato Processor Name: Martha Tripp Delivery Method: PHONE - Phone Lucy Days: Prior Verbal Notification: Recipient Understood Notice: Recipient Signature: Yes Med Rec Note Co-signed by Attending: Coverage Notice Comment: Patient Choice for [facility]. Last DP export: 12/10/19 11:17 am Patient Name: TELLY SORENSEN Page [phone] at 6230 All edits/amendments must be made on the electronic document DICTATION DATE: 12/10/192357 TRANSPORTATION MUSEUM HELPER: CHANEL 12/10/192357 RPT#: [id number] DC DATE:12/10/19 STATUS: DIS IN [id number] [place] [address] END OF REPORT
== END 2019-12-10 18:09 | disposition home health service (06) | DRG 314 ==
LOC: D.ER 19:48 → D.M2 21:02
PROVIDERS: Family Medicine; ADMIT Internal Medicine Nephrology; ATTEND Internal Medicine Nephrology
DX: I42.0 Dilated cardiomyopathy (principal); I50.23 Acute on chronic systolic (congestive) heart failure; G93.41 Metabolic encephalopathy; E44.0 Moderate protein-calorie malnutrition; R55 Syncope and collapse; E87.6 Hypokalemia; I11.0 Hypertensive heart disease with heart failure; E78.5 Hyperlipidemia, unspecified; I70.203 Unspecified atherosclerosis of native arteries of extremities, bilateral legs; G30.9 Alzheimer's disease, unspecified; F02.80 Dementia in other diseases classified elsewhere, unspecified severity, without behavioral disturbance, psychotic disturbance, mood disturbance, and anxiety; Z86.73 Personal history of transient ischemic attack (TIA), and cerebral infarction without residual deficits; Z87.891 Personal history of nicotine dependence; R00.1 Bradycardia, unspecified; Z68.25 Body mass index [BMI] 25.0-25.9, adult